=== PATIENT | male | born 1975 | race Hispanic/Latino ===

== ENCOUNTER 2021-10-07 11:33 | Inpatient (IN) | payer OTHER ==
--- OUTSIDE RECORDS SUMMARY | 2021-10-07 11:39 | XMS REPORT | Continuity of Care Document ---
:1975 Author Organization [facility] t Address [address] [place] [address] Care Team Providers Name Role Phone TOMAS HUSSEIN Attending Clinician Unavailable Shepard_P Attending Clinician Unavailable GC_NFAS_Lin_H Attending Clinician Unavailable DRU_Lindsay Attending Clinician Unavailable Leland Teague Attending Clinician [phone] GC_EPC_Watwe_V Attending Clinician Unavailable Rickie Hobbs Attending Clinician Unavailable Mart Jacobson Attending Clinician Unavailable Reina Baker Attending Clinician [phone] Brennen Bruno Attending Clinician [phone] Miguel Angel Willard Attending Clinician Unavailable Shepard_P Admitting Clinician Unavailable GC_NFAS_Lin_H Admitting Clinician Unavailable DRU_Lindsay Admitting Clinician Unavailable GC_EPC_Watwe_V Admitting Clinician Unavailable Rickie Hobbs Admitting Clinician Unavailable Mart Jacobson Admitting Clinician Unavailable Miguel Angel Willard Admitting Clinician Unavailable Payers Payer Name Policy Type Policy Number Effective Date Expiration Date S hernandez MEDICARE A B [id number] 2021 00:00:00 [place] [id number] [place] [id number] 2021 [employer] Advertising 00:00:00 [place] [id number] [place] Problems Condition Condition Condition Status Onset Resolution Last Treating Co mments Source Name Details Category Date Date Treatment Clinician Date Hyperlipid Hyperlipid Problem Active V illage emia emia 5-11 Family 00:00: Practic 00 e Primary Primary Problem Active Samantha insomnia Insomnia 5-11 Family 00:00: Practic 00 e Essential Essential Problem Active Sharon edgar hypertensi Hypertensi 5-11 [place] on on 00:00: Practic 00 e End stage End Stage Problem Active Sharon edgar renal Renal 5-11 Family failure on Failure on 00:00: Pr actic dialysis Dialysis 00 e Multiple Multiple Problem Active Dangelo ge complicati Complicati 5-11 Fa [place] ons due to ons Due to 00:00: Pr actic type 2 Type 2 00 e diabetes Diabetes mellitus Mellitus History of History of Problem Active V illage amputation Amputation 5-11 Fa [place] of left of Left 00:00: Practic leg Leg 00 e through through tibia and Tibia and fibula Fibula Allergies, Adverse Reactions, Alerts Allergy Allergy Status Severity Reaction(s) Onset Inactive Treating Comm ents Source Name Type Date Date Clinician No Known DA Active U [facility]10 [facility] 00:00: Health 00 are Dami Wisdom No Known DA Active U [facility]10 [facility] 00 are Dami Wisdom Social History Smoking Status Start Date Stop Date Source Former [facility] Medications Ordered Filled Start Stop Current Ordering Indication Dosage Frequency Signature Comments Components Source Medication Medication Date Date Medication? Clinician (SIG) Name Name amlodipine amlodipine No 1 Q1D amlodipine [facility] 5 mg tablet 5 mg tablet 5 mg F amily Take 1 Take 1 tablet Practic tablet tablet Take 1 e every day every day tablet by oral by oral every day route. route. by oral route. atorvastati atorvastati No 1 Q1D atorvastat [facility] n 10 mg n 10 mg in 10 mg Famil y tablet Take tablet Take tablet Practic 1 tablet 1 tablet Take 1 e every day every day tablet by oral by oral every day route. route. by oral route. Restoril Restoril No 1capsul Restoril [facility] 7.5 mg 7.5 mg e(s) 7.5 mg Family capsule capsule capsule Practi c Take 1 Take 1 Take 1 e capsule as capsule as capsule as needed by needed by needed by oral route oral route oral route at dinner at dinner at dinner for 30 for 30 for 30 days. days. days. sevelamer sevelamer No 1 TID [facility] Samantha carbonate carbonate carbonate [facility] 800 mg 800 mg 800 mg Practic tablet Take tablet Take tablet e 1 tablet 3 1 tablet 3 Take 1 times a day times a day tablet 3 by oral by oral times a route. route. day by oral route. Xarelto 2.5 Xarelto 2.5 No 1 BID Xarelto [place] mg tablet mg tablet 2.5 mg Fam sonia Take 1 Take 1 tablet Practic tablet tablet Take 1 e twice a day twice a day tablet by oral by oral twice a route. route. day by oral route. Vital Signs Vital Name Observation Time Observation Value Comments Source BP Diastolic 2021-06-30 00:00:00 72 mm[Hg] [facility] Height 2021-06-30 00:00:00 65 [in_i] [facility] BMI (Body Mass 2021-06-30 00:00:00 21.8 kg/m2 [facility] Index) Practice BP Systolic 2021-06-30 00:00:00 138 mm[Hg] [facility] Body Weight 2021-06-30 00:00:00 131 [lb_av] [facility] Procedures Procedure Date / Time Performed Performing Clinician Karen alexandre [id number] 2021-04-10 00:[facility] [id number] 2021-04-10 00:00:00 [facility] [id number] 2021-04-10 00:00:00 [facility] [id number] 2021-04-10 00:00:00 [facility] [id number] 2021-04-10 00:00:00 [facility] [id number] 2021-04-08 [facility] [id number] 2021-04-08 [facility] [id number] 2021-04-08 00:00:00 SHEAZ [facility] [id number] 2021-04-08 00:00:[address] [facility] [id number] 2021-04-07 00:00:[address] [facility] [id number] 2021-04-07 00:00:[address] [facility] [id number] 2021-04-07 00:00:[address] [facility] [id number] 2021-04-07 00:00:[address] [facility] [id number] 2021-04-06 00:00:[address] [facility] [id number] 2020-11-18 00:00:[address] [facility] [id number] 2020-11-17 00:00:[address] [facility] [id number] 2020-11-17 00:00:[address] [facility] [id number] 2020-11-17 00:00:[address] [facility] [id number] 2020-11-17 00:00:[address] [facility] [id number] 2020-11-14 00:00:[address] [facility] [id number] 2020-11-13 00:00:[address] [facility] [id number] 2020-11-12 00:00:[address] [facility] [id number] 2020-11-11 00:00:[address] [facility] [id number] 2020-11-10 00:00:[address] [facility] [id number] 2020-11-10 00:00:00 VIABR [facility] [id number] 2020-11-10 00:00:00 NGUBI.03 [facility] En[facility] Start End Encounter Admission Attending Care Care Encounter Source Date/Time Date/Time Type Type Clinicians Facility Department ID 2020-11-10 Inpatient [facility] GENA [id number] [facility] 11:20:00 [id number] [facility] [place] 2021-11-10 2021-11-10 Outpatient EL TIMMINS, [facility] [id number] [facility] 00:00:00 00:00:00 TOMAS 2021-11-10 2021-11-10 Outpatient EL TIMMINS, [facility]H [facility] [id number] [facility] 00:00:00 00:00:00 TOMAS 2021-11-10 2021-11-10 Outpatient EL TIMMINS, [facility]H [facility] [id number] [facility] 00:00:00 00:00:00 TOMAS 2021-11-10 2021-11-10 Outpatient EL TIMMINS, SLEH [facility] [id number] [facility] 00:00:00 00:00:00 TOMAS 2021-11-10 2021-11-10 Outpatient EL TIMMINS, SLEH [facility] [id number] [facility] 00:00:00 00:00:00 TOMAS 2021-10-11 2021-10-11 Outpatient EL SLE[facility] [id number] [facility] 00:00:00 00:00:00 2021-10-11 2021-10-11 Outpatient EL SLEH [facility] [id number] [facility] 00:00:00 00:00:00 2021-10-11 2021-10-11 Outpatient EL [facility]H [facility] [id number] [facility] 00:00:00 00:00:00 2021-10-11 2021-10-11 Outpatient EL [facility] [id number] [facility] 00:00:00 00:00:00 2021-10-11 2021-10-11 Outpatient EL [facility] [id number] [facility] 00:00:00 00:00:00 2021-10-06 2021-10-06 Outpatient Shepard_P VFP VFP [id number] [id number] [facility] 00:00:00 00:00:00 [id number] Family Practic e 2021-09-27 2021-09-27 Outpatient Shepard_P VFP VFP [id number] 71-20 [facility] 00:00:00 00:00:00 [id number] Family Practic e 2021-09-21 2021-09-21 Outpatient Shepard_P VFP [facility] [id number] 71-20 [facility] 00:00:00 00:00:00 [id number] Family Practic e 2021-09-14 2021-09-14 Outpatient EL SLEH SLE[facility] [id number] [facility] 00:00:00 00:00:00 2021-09-14 2021-09-14 Outpatient EL SLEH SLE[facility] [id number] [facility] 00:00:00 00:00:00 2021-09-14 2021-09-14 Outpatient EL SLEH SLE[facility] [id number] [facility] 00:00:00 00:00:00 2021-09-14 2021-09-14 Outpatient EL SLEH [facility] [id number] [facility] 00:00:00 00:00:00 2021-09-13 2021-09-13 Outpatient GC_NFAS_Lin PRIV PRIV [id number] [facility] 12:46:00 12:46:00 _H [id number] Medica l 2021-09-10 2021-09-10 Outpatient AO_Vial_Bri AOSM AOSM [id number] [facility] 05:00:00 05:00:00 Ayo [id number] Orthop e [facility] Sports Medicin e 2021-09-02 2021-09-02 Outpatient EL TIMMINS, SLE SLE [id number] [facility] 00:00:00 00:00:00 TOMAS 2021-09-02 2021-09-02 Outpatient EL TIMMINS, SLE SLE [id number] [facility] 00:00:00 00:00:00 TOMAS 2021-09-02 2021-09-02 Outpatient EL TIMMINS, SLE SLE [id number] [facility] 00:00:00 00:00:00 TOMAS 2021-09-02 2021-09-02 Outpatient EL TIMMINS, SLEH SLE [id number] [facility] 00:00:00 00:00:00 TOMAS 2021-09-02 2021-09-02 Outpatient EL TIMMINS, SLEH SLEH [id number] [facility] 00:00:00 00:00:00 TOMAS 2021-09-02 2021-09-02 Outpatient EL SLEH SLE [id number] [facility] 00:00:00 00:00:00 2021-08-31 2021-08-31 Outpatient GC_NFAS_Lin PRIV PRIV [id number] [facility] 12:56:00 12:56:00 _H [id number] Medica l 2021-08-17 2021-08-17 Outpatient EL SLEH SLEH [id number] [facility] 00:00:00 00:00:00 2021-08-17 2021-08-17 Outpatient EL SLEH SLEH [id number] [facility] 00:00:00 00:00:00 2021-08-17 2021-08-17 Outpatient EL SLEH SLEH [id number] [facility] 00:00:00 00:00:00 2021-08-17 2021-08-17 Outpatient EL SLEH SLEH [id number] [facility] 00:00:00 00:00:00 2021-08-15 2021-08-15 Outpatient Shepard_P VFP VFP [id number] 12:44:00 12:44:00 [id number] Family Practic e 2021-08-06 2021-08-06 Outpatient AO_Vial_Bri AOSM AOSM [id number] [facility] 05:57:00 05:57:00 Ayo [id number] Orthop e dic Sports Medicin e 2021-07-06 2021-07-06 Outpatient GC_NFAS_Lin PRIV PRIV [id number] [facility] 04:48:00 04:48:00 _H [id number] Medica l 2021-07-05 2021-07-05 Outpatient GC_NFAS_Lin PRIV PRIV [id number] [facility] 11:38:00 11:38:00 _H [id number] Medica l 2021-07-02 2021-07-02 Outpatient GC_NFAS_Lin PRIV PRIV [id number] [facility] 06:17:00 06:17:00 _H [id number] Medica l 2021-06-30 2021-06-30 Outpatient Shepard_P VFP VFP [id number] 12:32:00 12:32:00 [id number] Family Practic e 2021-06-30 2021-06-30 Alfred Clark VFP [place] - [id number] [address] [place] [address] 00:00:00 00:00:00 Samantha Farias MD: [id number] Medical - Prac tic Emmanuel ROLLINS_CODY_[address], JOSE Wisdom [phone] , Ph. 2021-06-02 2021-06-02 Outpatient GC_NFAS_Lin PRIV PRIV [id number] [facility] 12:37:00 12:37:00 _H [id number] Medica l 2021-06-02 2021-06-02 Outpatient Leland Teague PRIV PRIV [id number] 00:00:00 00:00:00 [id number] 2021-05-26 2021-05-26 Outpatient GC_NFAS_Lin PRIV PRIV [id number] [facility] 12:45:00 12:45:00 _H [id number] Medica l 2021-05-26 2021-05-26 Outpatient Leland Teague PRIV PRIV [id number] 00:00:00 00:00:00 [id number] 2021-05-19 2021-05-19 Outpatient GC_NFAS_Lin PRIV PRIV [id number] [facility] 12:49:00 12:49:00 _H [id number] Medica l 2021-05-19 2021-05-19 Outpatient Leland Teague PRIV PRIV [id number] 00:00:00 00:00:00 [id number] 2021-05-17 2021-05-17 Outpatient Shepard_P VFP VFP [id number] [facility] 06:33:00 06:33:00 [id number] Family Practic e 2021-05-17 2021-05-17 Outpatient Shepard_P VFP VFP [id number] [facility] 06:33:00 06:33:00 [id number] Family Practic e 2021-05-17 2021-05-17 Outpatient Shepard_P VFP VFP 71-20 [facility] 06:33:00 06:33:00 [id number] Family Practic e 2021-05-17 2021-05-17 Outpatient Shepard_P VFP VFP [id number] 71-20 [place] 06:33:00 06:33:00 [id number] Family Practic e 2021-05-12 2021-05-12 Outpatient GC_NFAS_Lin PRIV PRIV [id number] [facility] 05:15:00 05:15:00 _H [id number] Medica l 2021-05-12 2021-05-12 Outpatient Leland Teague PRIV PRIV [id number] 00:00:00 00:00:00 [id number] 2021-05-05 2021-05-05 Outpatient GC_NFAS_Lin PRIV PRIV [id number] [facility] 12:43:00 12:43:00 _H [id number] Medica l 2021-05-05 2021-05-05 Outpatient Leland Teague PRIV PRIV [id number] 00:00:00 00:00:00 [id number] 2021-04-26 Outpatient GC_NFAS_Lin PRIV PRIV [id number] [facility] 11:29:00 11:29:00 _H [id number] Medica l 2021-04-26 2021-04-26 Outpatient Leland Teague PRIV PRIV [id number] 00:00:00 00:00:00 [id number] 2021-04-12 2021-04-12 Outpatient GC_NFAS_Lin PRIV PRIV [id number] [facility] 11:56:00 11:56:00 _H [id number] Medica l 2021-04-12 2021-04-12 Outpatient GC_EPC_Watw PRIV PRIV [id number] [facility] 11:56:00 11:56:00 e_V [id number] Medica l 2021-04-07 2021-04-11 Inpatient EM Anjel, [facility] TELE [id number] [facility] 10:36:00 13:15:[address] [place] [address] 2021-04-07 2021-04-11 Inpatient EM Anjel, [facility] TELE [id number] [facility] 10:36:00 13:15:00 Rickie [facility] 2021-04-06 2021-04-06 Inpatient CLARK Jacobson, [facility] TELE [id number] [facility] 14:59:00 14:58:00 Zunaira [facility] 2021-04-01 2021-04-01 Outpatient GC_EPC_Watw PRIV PRIV [id number] [facility] 10:06:00 10:06:00 e_V [id number] Medica l 2021-03-31 2021-03-31 Outpatient GC_EPC_Watw PRIV PRIV [id number] [facility] 12:14:00 12:14:00 e_V [id number] Medica l 2021-03-31 2021-03-31 Outpatient Samuel, PRIV PRIV [id number] 00:00:00 00:00:00 Reina [id number] Anil [id number] 2021-03-23 2021-03-23 Outpatient GC_EPC_Watw PRIV PRIV [id number] [facility] 09:42:00 09:42:00 e_V [id number] Medica l 2021-03-23 2021-03-23 Outpatient GC_EPC_Watw PRIV PRIV [id number] [facility] 09:42:00 09:42:00 e_V [id number] Medica l 2021-03-18 2021-03-18 Outpatient GC_EPC_Watw PRIV PRIV [id number] [facility] 09:01:00 09:01:00 e_V [id number] Medica l 2021-03-17 2021-03-17 Outpatient GC_EPC_Watw PRIV PRIV [id number] [facility] 12:38:00 12:38:00 e_V [id number] Medica l 2021-03-17 2021-03-17 Outpatient Bruno, PRIV PRIV [id number] 00:00:00 00:00:00 Brennen Cma [id number] 2021-03-09 2021-03-09 Outpatient GC_EPC_Watw PRIV PRIV [id number] [facility] 05:17:00 05:17:00 e_V [id number] Medica l 2021-03-03 2021-03-03 Outpatient GC_EPC_Watw PRIV PRIV [id number] [facility] 02:13:00 02:13:00 e_V [id number] Medica l 2021-03-03 2021-03-03 Outpatient GC_EPC_Watw PRIV PRIV [id number] [facility] 02:13:00 02:13:00 e_V [id number] Medica l 2020-11-10 2020-11-18 Inpatient EM Miguel Angel Willard [facility] TELE [id number] [facility] 13:36:00 18:34:00 63 [facility] Results Test Description Test Time Test Comments Results Result Comments Source SURGICAL 2021-04-12 11:35:00 Test Item Value Reference Range Interpretation Comme nts SURGICAL RUN DATE: (test 04/12/21 [facility] * LIVE* PAGE 1 RUN TIME: 1135 Specimen Inquiry RUN USER: INTERFACE code = PATIENT: ) VALDO NAYLOR ACCT #: [id number] LOC: NC.MS3 U #: [id number] AGE/SX: 45/M ROOM: [place] [address] RE04/07/21REG DR: Rickie Hobbs MD : 71 BED: 1 DIS: 04/11/21 STATUS: DIS IN TLOC: SPEC #: [id number] RECD: 04/09/211042 STATUS: GERALD BUCKLEY #: [id number] SEBASTIEN: 04/06/21- SUBM DR: Rickie Hobbs MD ENTERED: 04/09/21 SP TY PE: SURGICAL OTHR DR: No Primary or Family Physician Self Referred Rodolfo Pena MD, Haonan DPM Montserrat singh,Fernando Husain,Adriano Howell,Mya Smith MD DPM Carlos Kulkarni RED: [id number], [id number], ANATOMIC SPEC TISSUES: TOE, NOS - GREAT TOE RIGHT FOOT FINAL DIAGNOSIS A. Right gre at toe, amputation: Gangrene with infarction abscess. Acute osteomyelitis. Involved margins. GROSS DESC RIPTION Received in formalin, labeled with the patient's name, date of and designated "antonino stuart ht" is a first digit measuring 3.5 x 3.0 x 2.5 cm. The skin is necrotic appearingand there is a scab on the tip of the toe measuring 1.7 x 1.3 cm. The bone at the marginappears grossly involved. Sectioning the toe reveals a hemorrhagic soft underlying boneand black soft tissue and skin. Tow Truck Dispatcher section s are submitted as follows:A1: Scab at the tip of the toeA2: Full section of bone from resection margin t o tip of toeA3: Skin and soft tissue at resection margin The cassette with bone will be submitted in de gilberto. LC/smh Technical component performed [facility],[address] [facility] [place] [address] CONTINUED ON NEXT PAGE RUN DATE: 04/12/21 [facility] * LIVE* PAGE 2 RUN TIME: 1135 Specimen Inquiry RUN USER: INTERFACE SPEC #: [id number] PATIENT: VALDO NAYLOR #[id number] (Continued) GROSS DESCRIPTION (Continued ) Unless gross only, the diagnosis is based upon microscopic examination.Immunohistochemi stry: This test was developed and its performancecharacteristics determined by this laboratory. It has n ot been approved nordoes it need approval by the [place] FDA. Appropriate positive and negative contro lsare reviewed and judged to be acceptable. This laboratory is certified underthe Clinical Laboratory Improvement Amendments (CLIA-88) as qualified toperform high complexity clinical laboratory testing. MICROSCOPIC DESCRIPTION Unless gross only, the diagnosis is based on microscopic examination. CLINICAL INFORMATION Gangrene great toe right foot Signed Deshawn Arango 1135 END OF REPORT [id number] 11:50:00 Test Item Value Reference Range Interpretation Comments GLUBED (test 90 mg/dL 70-105 N Intravenous adm inistration of code = GLUBED) N-acetylcyste ine which resultsin blood concentrations >5 mg/dL will cause overestim ationof blood glucose results . Do not use during intraven ousinfusion of N'acetylcystein e. BASIC METABOLIC [id number] 09:13:00 Test Item Value Reference Range Interpretation Comments SODIUM (test code = 138 mmol/L 135-145 N NA) POTASSIUM (test code 4.4 mmol/L 3.5-5.1 N = K) CHLORIDE (test code = 104 mmol/L 98-107 N CL) CARBON DIOXIDE (test 31 mmol/L 21-32 N code = CO2) ANION GAP (test code 7.4 2.0-16.0 N = GAP) GLUCOSE (test code = 92 mg/dL 65-99 N GLU) BLOOD UREA NITROGEN 16 mg/dL 4-23 N (test code = BUN) GLOMERULAR FILTRATION 12 ml/min L The es timated RATE (test code = glomerular filtration GFR) rate is compute d usingpatient ra ce, age (>18), sex, and serum creatinine. If anyof the needed data elements are mi ssing the Laboratory cannot compute an jorge mation of the glomerul ar filtration rate . CREATININE (test code 5.3 mg/dL 0.6-1.5 H = CREAT) BUN/CREATININE RATIO 3.0 12.0-20.0 L (test code = BUN/CREA) CALCIUM (test code = 8.2 mg/dL 8.5-10.1 L CA) CBC W/AUTO [id number] 08:39:00 Test Item Value Reference Range Interpretation Comments WHITE BLOOD CELL (test code = 9.6 10 3/uL 4.5-11.0 N WBC) RED BLOOD CELL (test code = 3.67 10 6/uL 4.30-5.90 L RBC) HEMOGLOBIN (test code = HGB) 10.5 g/dL 14.0-18.0 L HEMATOCRIT (test code = HCT) 34.8 % 40.0-55.0 L MEAN CELL VOLUME (test code = 95 fL 81-102 N MCV) MEAN CELL HGB (test code = 28.6 pg 26.0-34.0 N MCH) MEAN CELL HGB CONCENTRATION 30.2 g/dL 31.0-37.0 L (test code = MCHC) RED CELL DISTRIBUTION WIDTH 15.6 % 11.6-14.4 H (test code = RDW) PLATELET COUNT (test code = 440 10 3/uL 150-400 H PLT) MEAN PLATELET VOLUME (test 8.9 fL 9.0-12.6 L code = MPV) NEUTROPHIL % (test code = NT%) 56.4 % 33.0-76.0 N IMMATURE GRANULOCYTE % (test 2.2 % 0.0-1.0 H code = IG%) LYMPHOCYTE % (test code = LY%) 24.7 % 14.0-56.4 N MONOCYTE % (test code = MO%) 8.6 % 0.0-12.9 N EOSINOPHIL % (test code = EO%) 6.0 % 0.0-7.0 N BASOPHIL % (test code = BA%) 2.1 % 0-2.0 H NUCLEATED RBC % (test code = 0.0 % 0-0.2 N NRBC%) NEUTROPHIL # (test code = NT#) 5.44 10 3/uL 1.5-7.0 N IMMATURE GRANULOCYTE # (test 0.210 x10 3/uL 0.000-0.100 H code = IG#) LYMPHOCYTE # (test code = LY#) 2.38 10 3/uL 1.50-4.00 N MONOCYTE # (test code = MO#) 0.83 10 3/uL 0.20-0.80 H EOSINOPHIL # (test code = EO#) 0.58 10 3/uL 0.0-0.5 H BASOPHIL # (test code = BA#) 0.20 10 3/uL 0.0-0.1 H [id number] 07:33:00 Test Item Value Reference Range Interpretation Comments GLUBED (test 84 mg/dL 70-105 N Intravenous adm inistration of code = GLUBED) N-acetylcyste ine which resultsin blood concentrations >5 mg/dL will cause overestim ationof blood glucose results . Do not use during intraven ousinfusion of N'acetylcystein e. [id number] 21:13:00 Test Item Value Reference Range Interpretation Comments GLUBED (test 182 mg/dL 70-105 H Intravenous adm inistration code = GLUBED) of N-acetylcy steine which resultsin blood concentrations >5 mg/dL will cause overestim ationof blood glucose results . Do not use during intraven ousinfusion of N'acetylcyst eine. [id number] 16:14:00 Test Item Value Reference Range Interpretation Comments GLUBED (test 108 mg/dL 70-105 H Intravenous adm inistration code = GLUBED) of N-acetylcy steine which resultsin blood concentrations >5 mg/dL will cause overestim ationof blood glucose results . Do not use during intraven ousinfusion of N'acetylcyst eine. [id number] 09:43:00 Test Item Value Reference Range Interpretation Comments GLUBED (test 77 mg/dL 70-105 N Intravenous adm inistration of code = GLUBED) N-acetylcyste ine which resultsin blood concentrations >5 mg/dL will cause overestim ationof blood glucose results . Do not use during intraven ousinfusion of N'acetylcystein e. BASIC METABOLIC [id number] 07:49:00 Test Item Value Reference Range Interpretation Comments SODIUM (test code = 137 mmol/L 135-145 N NA) POTASSIUM (test code 4.3 mmol/L 3.5-5.1 N = K) CHLORIDE (test code = 104 mmol/L 98-107 N CL) CARBON DIOXIDE (test 28 mmol/L 21-32 N code = CO2) ANION GAP (test code 9.3 2.0-16.0 N = GAP) GLUCOSE (test code = 95 mg/dL 65-99 N GLU) BLOOD UREA NITROGEN 21 mg/dL 4-23 N (test code = BUN) GLOMERULAR FILTRATION 9 ml/min L The es timated RATE (test code = glomerular filtration GFR) rate is compute d usingpatient ra ce, age (>18), sex, and serum creatinine. If anyof the needed data elements are mi ssing the Laboratory cannot compute an jorge mation of the glomerul ar filtration rate . CREATININE (test code 7.0 mg/dL 0.6-1.5 H = CREAT) BUN/CREATININE RATIO 3.0 12.0-20.0 L (test code = BUN/CREA) CALCIUM (test code = 8.0 mg/dL 8.5-10.1 L CA) [id number] 07:49:00 Test Item Value Reference Range Interpretation Comments PHOSPHOROUS (test code = PHOS) 4.2 mg/dL 2.5-4.9 N [id number] 07:49:00 Test Item Value Reference Range Interpretation Comments MAGNESIUM (test code = MAG) 2.0 mg/dL 1.8-2.4 N [id number] 07:49:00 Test Item Value Reference Range Interpretation Comments VANCOMYCIN (test code = VANCO) 31.1 ug/mL 5.0-40.0 N CBC W/AUTO [id number] 07:30:00 Test Item Value Reference Range Interpretation Comments WHITE BLOOD CELL (test code = 9.3 10 3/uL 4.5-11.0 N WBC) RED BLOOD CELL (test code = 3.36 10 6/uL 4.30-5.90 L RBC) HEMOGLOBIN (test code = HGB) 9.6 g/dL 14.0-18.0 L HEMATOCRIT (test code = HCT) 31.5 % 40.0-55.0 L MEAN CELL VOLUME (test code = 94 fL 81-102 MCV) MEAN CELL HGB (test code = 28.6 pg 26.0-34.0 N MCH) MEAN CELL HGB CONCENTRATION 30.5 g/dL 31.0-37.0 L (test code = MCHC) RED CELL DISTRIBUTION WIDTH 15.6 % 11.6-14.4 H (test code = RDW) PLATELET COUNT (test code = 368 10 3/uL 150-400 N PLT) MEAN PLATELET VOLUME (test 8.9 fL 9.0-12.6 L code = MPV) NEUTROPHIL % (test code = NT%) 61.5 % 33.0-76.0 N IMMATURE GRANULOCYTE % (test 1.2 % 0.0-1.0 H code = IG%) LYMPHOCYTE % (test code = LY%) 21.2 % 14.0-56.4 N MONOCYTE % (test code = MO%) 9.2 % 0.0-12.9 N EOSINOPHIL % (test code = EO%) 5.5 % 0.0-7.0 N BASOPHIL % (test code = BA%) 1.4 % 0-2.0 N NUCLEATED RBC % (test code = 0.0 % 0-0.2 N NRBC%) NEUTROPHIL # (test code = NT#) 5.70 10 3/uL 1.5-7.0 N IMMATURE GRANULOCYTE # (test 0.110 x10 3/uL 0.000-0.100 H code = IG#) LYMPHOCYTE # (test code = LY#) 1.96 10 3/uL 1.50-4.00 N MONOCYTE # (test code = MO#) 0.85 10 3/uL 0.20-0.80 H EOSINOPHIL # (test code = EO#) 0.51 10 3/uL 0.0-0.5 H BASOPHIL # (test code = BA#) 0.13 10 3/uL 0.0-0.1 H [id number] 20:42:00 Test Item Value Reference Range Interpretation Comments GLUBED (test 158 mg/dL 70-105 H Intravenous adm inistration code = GLUBED) of N-acetylcy steine which resultsin blood concentrations >5 mg/dL will cause overestim ationof blood glucose results . Do not use during intraven ousinfusion of N'acetylcyst eine. [id number] 16:56:00 Test Item Value Reference Range Interpretation Comments GLUBED (test 109 mg/dL 70-105 H Intravenous adm inistration code = GLUBED) of N-acetylcy steine which resultsin blood concentrations >5 mg/dL will cause overestim ationof blood glucose results . Do not use during intraven ousinfusion of N'acetylcyst eine. [id number] 13:32:00 Test Item Value Reference Range Interpretation Comments GLUBED (test 124 mg/dL 70-105 H Intravenous adm inistration code = GLUBED) of N-acetylcy steine which resultsin blood concentrations >5 mg/dL will cause overestim ationof blood glucose results . Do not use during intraven ousinfusion of N'acetylcyst eine. [id number] 08:24:00 Test Item Value Reference Range Interpretation Comments GLUBED (test 85 mg/dL 70-105 N Intravenous adm inistration of code = GLUBED) N-acetylcyste ine which resultsin blood concentrations >5 mg/dL will cause overestim ationof blood glucose results . Do not use during intraven ousinfusion of N'acetylcystein e. BASIC METABOLIC [id number] 07:42:00 Test Item Value Reference Range Interpretation Comments SODIUM (test code = 137 mmol/L 135-145 N NA) POTASSIUM (test code 4.2 mmol/L 3.5-5.1 N = K) CHLORIDE (test code = 102 mmol/L 98-107 N CL) CARBON DIOXIDE (test 29 mmol/L 21-32 N code = CO2) ANION GAP (test code 10.2 2.0-16.0 N = GAP) GLUCOSE (test code = 89 mg/dL 65-99 N GLU) BLOOD UREA NITROGEN 14 mg/dL 4-23 N (test code = BUN) GLOMERULAR FILTRATION 12 ml/min L The es timated RATE (test code = glomerular filtration GFR) rate is compute d usingpatient ra ce, age (>18), sex, and serum creatinine. If anyof the needed data elements are mi ssing the Laboratory cannot compute an jorge mation of the glomerul ar filtration rate . CREATININE (test code 5.3 mg/dL 0.6-1.5 H = CREAT) BUN/CREATININE RATIO 2.6 12.0-20.0 L (test code = BUN/CREA) CALCIUM (test code = 8.4 mg/dL 8.5-10.1 L CA) COMPREHENSIVE METABOLIC [id number] 07:42:00 Test Item Value Reference Range Interpretation Comments TOTAL PROTEIN 7.3 g/dL 6.4-8.2 N (test code = PROT) ALBUMIN (test code 2.3 g/dL 3.4-5.0 L = ALB) BILIRUBIN TOTAL 0.6 mg/dL 0.2-1.2 N Use of this assay is not (test code = BILT) recommend ed for patients undergoingtreat ment with Eltrombopag due to the potential for falselyelevated results. SGOT/AST (test 7 U/L 15-37 L code = AST) SGPT/ALT (test 7 U/L 6-50 N code = ALT) ALKALINE 70 U/L 45-117 N PHOSPHATASE (test code = ALKP) CBC W/AUTO [id number] 07:03:00 Test Item Value Reference Range Interpretation Comments WHITE BLOOD CELL (test code = 8.8 10 3/uL 4.5-11.0 N WBC) RED BLOOD CELL (test code = 3.47 10 6/uL 4.30-5.90 L RBC) HEMOGLOBIN (test code = HGB) 9.5 g/dL 14.0-18.0 L HEMATOCRIT (test code = HCT) 31.7 % 40.0-55.0 L MEAN CELL VOLUME (test code = 91 fL 81-102 N MCV) MEAN CELL HGB (test code = 27.4 pg 26.0-34.0 N MCH) MEAN CELL HGB CONCENTRATION 30.0 g/dL 31.0-37.0 L (test code = MCHC) RED CELL DISTRIBUTION WIDTH 15.5 % 11.6-14.4 H (test code = RDW) PLATELET COUNT (test code = 369 10 3/uL 150-400 N PLT) MEAN PLATELET VOLUME (test 8.9 fL 9.0-12.6 L code = MPV) NEUTROPHIL % (test code = NT%) 65.9 % 33.0-76.0 N IMMATURE GRANULOCYTE % (test 1.2 % 0.0-1.0 H code = IG%) LYMPHOCYTE % (test code = LY%) 19.3 % 14.0-56.4 N MONOCYTE % (test code = MO%) 9.3 % 0.0-12.9 N EOSINOPHIL % (test code = EO%) 3.2 % 0.0-7.0 N BASOPHIL % (test code = BA%) 1.1 % 0-2.0 N NUCLEATED RBC % (test code = 0.0 % 0-0.2 N NRBC%) NEUTROPHIL # (test code = NT#) 5.82 10 3/uL 1.5-7.0 N IMMATURE GRANULOCYTE # (test 0.110 x10 3/uL 0.000-0.100 H code = IG#) LYMPHOCYTE # (test code = LY#) 1.71 10 3/uL 1.50-4.00 N MONOCYTE # (test code = MO#) 0.82 10 3/uL 0.20-0.80 H EOSINOPHIL # (test code = EO#) 0.28 10 3/uL 0.0-0.5 N BASOPHIL # (test code = BA#) 0.10 10 3/uL 0.0-0.1 N [id number] 21:34:00 Test Item Value Reference Range Interpretation Comments GLUBED (test 151 mg/dL 70-105 H Intravenous adm inistration code = GLUBED) of N-acetylcy steine which resultsin blood concentrations >5 mg/dL will cause overestim ationof blood glucose results . Do not use during intraven ousinfusion of N'acetylcyst eine. AB HEPATITIS A [id number] 18:23:00 Test Item Value Reference Range Interpretation Comments AB HEPATITIS A IGM (test code = Non-Reactive NONREACTIVE HAVMAB) AG HEPATITIS B [id number] 18:23:00 Test Item Value Reference Range Interpretation Comments AG HEPATITIS B SURFACE (test Non-Reactive NONREACTIVE code = HBSAG) AB HEPATITIS B CORE [id number] 18:23:00 Test Item Value Reference Range Interpretation Comments AB HEPATITIS B CORE IGM (test Non-Reactive NONREACTIVE code = HBCMAB) AB HEPATITIS [id number] 18:23:00 Test Item Value Reference Range Interpretation Comments AB HEPATITIS C (test code = Non-Reactive NONREACTIVE HCVAB) [id number] 18:18:00 Test Item Value Reference Range Interpretation Comments GLUBED (test 75 mg/dL 70-105 N Intravenous adm inistration of code = GLUBED) N-acetylcyste ine which resultsin blood concentrations >5 mg/dL will cause overestim ationof blood glucose results . Do not use during intraven ousinfusion of N'acetylcystein e. HGBA1C - GLYCOSYLATED [id number] 05:35:00 Test Item Value Reference Range Interpretation Comments GLYCOSYLATED 7.0 % 4.5-5.9 H [employer] HEMOGLOBIN (HA1C) Associatio n recommends a (test code = GLYHGB) therape uticrange of <7.0% Hemoglobin A1c for patients with diabetesmellitu s (Type 2 diabetes). BASIC METABOLIC [id number] 04:46:00 Test Item Value Reference Range Interpretation Comments SODIUM (test code = 134 mmol/L 135-145 L NA) POTASSIUM (test code 4.7 mmol/L 3.5-5.1 N = K) CHLORIDE (test code = 102 mmol/L 98-107 N CL) CARBON DIOXIDE (test 26 mmol/L 21-32 N code = CO2) ANION GAP (test code 10.7 2.0-16.0 N = GAP) GLUCOSE (test code = 105 mg/dL 65-99 H GLU) BLOOD UREA NITROGEN 23 mg/dL 4-23 N (test code = BUN) GLOMERULAR FILTRATION 8 ml/min L The es timated RATE (test code = glomerular filtration GFR) rate is compute d usingpatient ra ce, age (>18), sex, and serum creatinine. If anyof the needed data elements are mi ssing the Laboratory cannot compute an jorge mation of the glomerul ar filtration rate . CREATININE (test code 7.5 mg/dL 0.6-1.5 H = CREAT) BUN/CREATININE RATIO 3.1 12.0-20.0 L (test code = BUN/CREA) CALCIUM (test code = 8.4 mg/dL 8.5-10.1 L CA) COMPREHENSIVE METABOLIC [id number] 04:46:00 Test Item Value Reference Range Interpretation Comments TOTAL PROTEIN 7.0 g/dL 6.4-8.2 N (test code = PROT) ALBUMIN (test code 2.2 g/dL 3.4-5.0 L = ALB) BILIRUBIN TOTAL 0.5 mg/dL 0.2-1.2 N Use of this assay is not (test code = BILT) recommend ed for patients undergoingtreat ment with Eltrombopag due to the potential for falselyelevated results. SGOT/AST (test 6 U/L 15-37 L code = AST) SGPT/ALT (test 6 U/L 6-50 N code = ALT) ALKALINE 73 U/L 45-117 N PHOSPHATASE (test code = ALKP) [id number] 04:46:00 Test Item Value Reference Range Interpretation Comments PHOSPHOROUS (test code = PHOS) 2.1 mg/dL 2.5-4.9 L [id number] 04:46:00 Test Item Value Reference Range Interpretation Comments MAGNESIUM (test code = MAG) 2.1 mg/dL 1.8-2.4 N FE W/TOTAL IRON BINDING [id number] 04:46:00 Test Item Value Reference Range Interpretation Comments IRON (test code = IRON) 35 ug/dL 35-150 N TOTAL IRON BINDING CAPACITY (test 136 ug/dL 260-445 L code = TIBC) IRON SATURATION (test code = FESAT) 26 % 11-46 N [id number] 04:46:00 Test Item Value Reference Range Interpretation Comments VANCOMYCIN (test code = VANCO) 21.3 ug/mL 5.0-40.0 N CBC W/AUTO [id number] 04:23:00 Test Item Value Reference Range Interpretation Comments WHITE BLOOD CELL (test code = 11.5 10 3/uL 4.5-11.0 H WBC) RED BLOOD CELL (test code = 3.51 10 6/uL 4.30-5.90 L RBC) HEMOGLOBIN (test code = HGB) 10.1 g/dL 14.0-18.0 L HEMATOCRIT (test code = HCT) 32.3 % 40.0-55.0 L MEAN CELL VOLUME (test code = 92 fL 81-102 N MCV) MEAN CELL HGB (test code = 28.8 pg 26.0-34.0 N MCH) MEAN CELL HGB CONCENTRATION 31.3 g/dL 31.0-37.0 N (test code = MCHC) RED CELL DISTRIBUTION WIDTH 15.3 % 11.6-14.4 H (test code = RDW) PLATELET COUNT (test code = 334 10 3/uL 150-400 N PLT) MEAN PLATELET VOLUME (test 8.6 fL 9.0-12.6 L code = MPV) NEUTROPHIL % (test code = NT%) 67.8 % 33.0-76.0 N IMMATURE GRANULOCYTE % (test 1.0 % 0.0-1.0 N code = IG%) LYMPHOCYTE % (test code = LY%) 17.4 % 14.0-56.4 N MONOCYTE % (test code = MO%) 9.6 % 0.0-12.9 N EOSINOPHIL % (test code = EO%) 3.2 % 0.0-7.0 N BASOPHIL % (test code = BA%) 1.0 % 0-2.0 N NUCLEATED RBC % (test code = 0.0 % 0-0.2 N NRBC%) NEUTROPHIL # (test code = NT#) 7.82 10 3/uL 1.5-7.0 H IMMATURE GRANULOCYTE # (test 0.110 x10 3/uL 0.000-0.100 H code = IG#) LYMPHOCYTE # (test code = LY#) 2.00 10 3/uL 1.50-4.00 N MONOCYTE # (test code = MO#) 1.11 10 3/uL 0.20-0.80 H EOSINOPHIL # (test code = EO#) 0.37 10 3/uL 0.0-0.5 N BASOPHIL # (test code = BA#) 0.11 10 3/uL 0.0-0.1 H [id number] 20:15:00 Test Item Value Reference Range Interpretation Comments GLUBED (test 82 mg/dL 70-105 N Intravenous adm inistration of code = GLUBED) N-acetylcyste ine which resultsin blood concentrations >5 mg/dL will cause overestim ationof blood glucose results . Do not use during intraven ousinfusion of N'acetylcystein e. [id number] 18:40:00 Test Item Value Reference Range Interpretation Comments GLUBED (test 83 mg/dL 70-105 N Intravenous adm inistration of code = GLUBED) N-acetylcyste ine which resultsin blood concentrations >5 mg/dL will cause overestim ationof blood glucose results . Do not use during intraven ousinfusion of N'acetylcystein e. [id number] 16:07:00 Test Item Value Reference Range Interpretation Comments GLUBED (test 80 mg/dL 70-105 N Intravenous adm inistration of code = GLUBED) N-acetylcyste ine which resultsin blood concentrations >5 mg/dL will cause overestim ationof blood glucose results . Do not use during intraven ousinfusion of N'acetylcystein e. - MRI LOW EXT W/O CONT [id number] 13:47:00 [facility] 1975 Sex: MPatient Name: VALDO NAYLOR Unit No: [id number] EXAMS: CPT CODE: [id number] MRI LOW EXT W/[place] [id number] LOCATION: H 19 MRI OF THE RIGHT FOOT WITHOUT INTRAVENOUS CONTRAST HISTORY: Hallux osteomyelitis. TECHNIQUE: Multiplanar and multisequence MR imaging of the right forefoot was performed without the administration of intravenous gadolinium. COMPARISON: 04/06/2019 right foot radiograph. FINDINGS: This examination is limited due to motion artifact. There is subcutaneous edema at the first digit with an area of fluid measuring 1.8 x 1.0 x 1.1 cm that appear to contain several foci of air and is thought to extend into the intramedullary space of the first distal phalanx. There is osteolysis of the first distal phalanx with significant marrow edema and bony fragmentation that include areas ofT1 hypointense marrow signal. Marrow edema and T1 hypointense signal abnormality is also appreciatedat the distal and medial margin of the first proximal phalanx. There is chronic bony remodeling withdorsal dislocation at the fifth and fourth MTP joints. There is a chronic third metatarsal fracture.Degenerative cystic changes are identified at the third metatarsal base. There is no evidence for tenosynovitis. The Lisfranc ligament is intact. There is moderate diffuse muscular edema without significant fatty atrophy. IMPRESSION: Osteomyelitis of the first distal phalanx and distal margin of the first proximal phalanx. Abscess at the first digit tip with intraosseous extension into the first distal phalanx. Moderate diffuse myositis. Chronic bony remodeling with dorsal dislocation at the fourth and fifth MTP joints, this could be from remote infection or trauma. Chronic third metatarsal fracture. at 1347 Reported and signed by: Balta Philip M.D. Name: VALDO NAYLOR [facility] Phys: Leland Gardner DPRonald [address] : 1975 Age: 45 Sex: [place] [id number] Loc: NC.5303 1 Exam Date: 04/06/2021 Status: ADM IN PH: FAX: PAGE 1 Signed Report (CONTINUED) Patient Name: VALDO NAYLOR Unit No: [id number] EXAMS: CPT CODE: [id number] MRI LOW EXT W/[place] [id number] <Continued> CC:Self Referred; Mart Jacobson MD; Leland Teague DPM Technologist: Anjali Rodas Trscr Dt/Tm: 04/07/2021(1347) by:[email or web address] Electronic Signature Date/Time: 04/07/2021 (1347)Orig Print D/T: S: 04/07/2021 ( 2330) Name: VALDO NAYLOR [facility] Phys: Leland Gardner DPRonald [address]DOB: 1975 Age: 45 Sex: [place] [phone] Loc: NC.5303 1 Exam Date: 04/06/2021 Status: ADM IN PH: FAX: PAGE 2 Signed ReportBASIC METABOLIC [id number] 11:08:00 Test Item Value Reference Range Interpretation Comments SODIUM (test code = 137 mmol/L 135-145 N NA) POTASSIUM (test code 4.2 mmol/L 3.5-5.1 = K) CHLORIDE (test code = 106 mmol/L 98-107 N CL) CARBON DIOXIDE (test 26 mmol/L 21-32 N code = CO2) ANION GAP (test code 9.2 2.0-16.0 = GAP) GLUCOSE (test code = 95 mg/dL 65-99 N GLU) BLOOD UREA NITROGEN 16 mg/dL 4-23 (test code = BUN) GLOMERULAR FILTRATION 11 ml/min L The es timated RATE (test code = glomerular filtration GFR) rate is compute d usingpatient ra ce, age (>18), sex, and serum creatinine. If anyof the needed data elements are mi ssing the Laboratory cannot compute an jorge mation of the glomerul ar filtration rate . CREATININE (test code 6.1 mg/dL 0.6-1.5 H = CREAT) BUN/CREATININE RATIO 2.6 12.0-20.0 L (test code = BUN/CREA) CALCIUM (test code = 8.2 mg/dL 8.5-10.1 L CA) COMPREHENSIVE METABOLIC [id number] 11:08:00 Test Item Value Reference Range Interpretation Comments TOTAL PROTEIN 6.7 g/dL 6.4-8.2 N (test code = PROT) ALBUMIN (test code 2.3 g/dL 3.4-5.0 L = ALB) BILIRUBIN TOTAL 0.5 mg/dL 0.2-1.2 N Use of this assay is not (test code = BILT) recommend ed for patients undergoingtreat ment with Eltrombopag due to the potential for falselyelevated results. SGOT/AST (test 6 U/L 15-37 L code = AST) SGPT/ALT (test 8 U/L 6-50 N code = ALT) ALKALINE 80 U/L 45-117 N PHOSPHATASE (test code = ALKP) CBC W/AUTO [id number] 09:52:00 Test Item Value Reference Range Interpretation Comments WHITE BLOOD CELL (test code = 11.9 10 3/uL 4.5-11.0 H WBC) RED BLOOD CELL (test code = 3.70 10 6/uL 4.30-5.90 L RBC) HEMOGLOBIN (test code = HGB) 10.3 g/dL 14.0-18.0 L HEMATOCRIT (test code = HCT) 33.6 % 40.0-55.0 L MEAN CELL VOLUME (test code = 91 fL 81-102 N MCV) MEAN CELL HGB (test code = 27.8 pg 26.0-34.0 N MCH) MEAN CELL HGB CONCENTRATION 30.7 g/dL 31.0-37.0 L (test code = MCHC) RED CELL DISTRIBUTION WIDTH 15.2 % 11.6-14.4 H (test code = RDW) PLATELET COUNT (test code = 357 10 3/uL 150-400 N PLT) MEAN PLATELET VOLUME (test 8.9 fL 9.0-12.6 L code = MPV) NEUTROPHIL % (test code = NT%) 69.9 % 33.0-76.0 N IMMATURE GRANULOCYTE % (test 0.9 % 0.0-1.0 N code = IG%) LYMPHOCYTE % (test code = LY%) 15.6 % 14.0-56.4 N MONOCYTE % (test code = MO%) 9.3 % 0.0-12.9 N EOSINOPHIL % (test code = EO%) 3.3 % 0.0-7.0 N BASOPHIL % (test code = BA%) 1.0 % 0-2.0 N NUCLEATED RBC % (test code = 0.0 % 0-0.2 N NRBC%) NEUTROPHIL # (test code = NT#) 8.30 10 3/uL 1.5-7.0 H IMMATURE GRANULOCYTE # (test 0.110 x10 3/uL 0.000-0.100 H code = IG#) LYMPHOCYTE # (test code = LY#) 1.86 10 3/uL 1.50-4.00 N MONOCYTE # (test code = MO#) 1.11 10 3/uL 0.20-0.80 H EOSINOPHIL # (test code = EO#) 0.39 10 3/uL 0.0-0.5 N BASOPHIL # (test code = BA#) 0.12 10 3/uL 0.0-0.1 H [id number] 06:16:00 Test Item Value Reference Range Interpretation Comments GLUBED (test 108 mg/dL 70-105 H Intravenous adm inistration code = GLUBED) of N-acetylcy steine which resultsin blood concentrations >5 mg/dL will cause overestim ationof blood glucose results . Do not use during intraven ousinfusion of N'acetylcyst eine. - DUP LE ART UNI [id number] 02:46:00 [facility] : 1975 Sex: MPatient Name: VALDO NAYLOR Unit No: [id number] EXAMS: CPT CODE: [id number] [facility] [id number] LOCATION: Q15 HISTORY: 45-year-old male with radiographic findings of osteomyelitis in the right great toe. COMMENT: Sonographic imaging of the arterial anatomy in this patient's right leg was obtained. Grayscale, color- flow, and Doppler waveform imaging modalities were utilized. A prior examination of both lower extremities dated November 11, 2020 is available for comparison. The systolic flow velocities listed below are in centimeters per 2nd followed by the Doppler waveform pattern. MACHINE PRECISION ENGRAVER: 117, triphasic Proximal SFA: 48, triphasic DFA: 56, triphasic Mid SFA: 89, monophasic Distal SFA: 70, monophasic Popliteal A: 94, monophasic HUMAN CAPITAL ANALYST: 39, monophasic Peroneal A: 90, monophasic BRAN: 77, monophasic DPA: 126, monophasic IMPRESSION: Again demonstrated are dampened arterial waveform patterns extending from the mid superficial femoral artery distally to the dorsalis pedis artery, with triphasic waveform patterns demonstrated more proximally in the anatomy. The overall pattern is unchanged when compared to the prior study obtained this past October. at 0246 Reported and signed by: Balta Wilkins MD CC: Self Referred; Mart Garcia; Leland Teague DPM Technologist: Macrina Jung Probe: Trscr Dt/Tm: 04/07/2021 (245) by:[email or web address] Electronic Signature Date/Time: 04/07/2021 (245)Orig Print D/T: S: 04/07/2021 (248) Name: VALDO NAYLOR [facility] Phys: Leland Gardner DPM [address] : 1975 Age: 45 Sex: [place] [id number] Loc: NC.5303 1 Exam Date: 04/06/2021 Status: ADM IN PH: FAX: PAGE 1 Signed [id number] 20:59:00 Test Item Value Reference Range Interpretation Comments GLUBED (test 103 mg/dL 70-105 N Intravenous adm inistration code = GLUBED) of N-acetylcy steine which resultsin blood concentrations >5 mg/dL will cause overestim ationof blood glucose results . Do not use during intraven ousinfusion of N'acetylcyst eine. COVID 19 INHOUSE [id number] 19:02:00 Test Item Value Reference Range Interpretation Comments COVID 19 INHOUSE NEGATIVE Negative Negative re sults do not AG (test code = preclude 201 9-nCoV infection [id number]) andshould not b e used as the sole basis for treatment or otherpatient ma nagement decisions. Nega tive results must becombined with clinical observ ations, patient history , andepidemiologi gilberto information. LIPID PROFILE (CORONARY RISK)2021-04-06 18:26:00 Test Item Value Reference Range Interpretation Comments TRIGLYCERIDES (test code = TRIG) 242 mg/dL 0-149 H CHOLESTEROL (test code = CHOL) 158 mg/dL 0-200 N CHOLESTEROL/HDL RATIO (test code = 6 1-6 N CHOLHDL) HDL CHOLESTEROL (test code = HDL) 25 mg/dL 40-60 L LIPOPROTEIN LDL (test code = LDLC) 88 mg/dL 0-100 N BASIC METABOLIC [id number] 17:10:00 Test Item Value Reference Range Interpretation Comments SODIUM (test code = 137 mmol/L 135-145 N NA) POTASSIUM (test code 3.0 mmol/L 3.5-5.1 L = K) CHLORIDE (test code = 101 mmol/L 98-107 N CL) CARBON DIOXIDE (test 33 mmol/L 21-32 H code = CO2) ANION GAP (test code 6.0 2.0-16.0 N = GAP) GLUCOSE (test code = 166 mg/dL 65-99 H GLU) BLOOD UREA NITROGEN 8 mg/dL 4-23 N (test code = BUN) GLOMERULAR FILTRATION 15 ml/min L The es timated RATE (test code = glomerular filtration GFR) rate is compute d usingpatient ra ce, age (>18), sex, and serum creatinine. If anyof the needed data elements are mi ssing the Laboratory cannot compute an jorge mation of the glomerul ar filtration rate . CREATININE (test code 4.4 mg/dL 0.6-1.5 H = CREAT) BUN/CREATININE RATIO 1.8 12.0-20.0 L (test code = BUN/CREA) CALCIUM (test code = 9.1 mg/dL 8.5-10.1 N CA) CBC W/AUTO [id number] 16:55:00 Test Item Value Reference Range Interpretation Comments WHITE BLOOD CELL (test code = 11.2 10 3/uL 4.5-11.0 H WBC) RED BLOOD CELL (test code = 4.05 10 6/uL 4.30-5.90 L RBC) HEMOGLOBIN (test code = HGB) 11.6 g/dL 14.0-18.0 L HEMATOCRIT (test code = HCT) 36.6 % 40.0-55.0 L MEAN CELL VOLUME (test code = 90 fL 81-102 N MCV) MEAN CELL HGB (test code = 28.6 pg 26.0-34.0 N MCH) MEAN CELL HGB CONCENTRATION 31.7 g/dL 31.0-37.0 N (test code = MCHC) RED CELL DISTRIBUTION WIDTH 14.9 % 11.6-14.4 H (test code = RDW) PLATELET COUNT (test code = 440 10 3/uL 150-400 H PLT) MEAN PLATELET VOLUME (test 9.0 fL 9.0-12.6 N code = MPV) NEUTROPHIL % (test code = NT%) 72.1 % 33.0-76.0 N IMMATURE GRANULOCYTE % (test 1.5 % 0.0-1.0 H code = IG%) LYMPHOCYTE % (test code = LY%) 14.3 % 14.0-56.4 N MONOCYTE % (test code = MO%) 8.1 % 0.0-12.9 N EOSINOPHIL % (test code = EO%) 2.9 % 0.0-7.0 N BASOPHIL % (test code = BA%) 1.1 % 0-2.0 N NUCLEATED RBC % (test code = 0.0 % 0-0.2 N NRBC%) NEUTROPHIL # (test code = NT#) 8.10 10 3/uL 1.5-7.0 H IMMATURE GRANULOCYTE # (test 0.170 x10 3/uL 0.000-0.100 H code = IG#) LYMPHOCYTE # (test code = LY#) 1.60 10 3/uL 1.50-4.00 N MONOCYTE # (test code = MO#) 0.91 10 3/uL 0.20-0.80 H EOSINOPHIL # (test code = EO#) 0.32 10 3/uL 0.0-0.5 N BASOPHIL # (test code = BA#) 0.12 10 3/uL 0.0-0.1 H - XR FOOT 3 + V [id number] 16:27:00 [facility] : 1975 Sex: MPatient Name: VALDO NAYLOR Unit No: [id number] EXAMS: CPT CODE: [id number] XR FOOT 3 + V [id number] EXAM: - XR FOOT 3 + V RT INDICATION: R GREAT TOE NECROSIS LOCATION CODE: A1 COMPARISON: Rightfoot radiograph dated 11/10/2020 TECHNIQUE: 3 views of the right foot were obtained. FINDINGS: No acute fracture or malalignment is seen. Chronic deformities/erosions are noted at the heads of the 2nd,3rd, 4th, and 5th metatarsals, unchanged from prior. Soft tissue irregularity is noted at the great toe with subcutaneous emphysema present. Osseous erosions are noted at the distal phalanx tuft concerning for underlying acute osteomyelitis. Vascular calcifications are seen in the soft tissues. IMPRESSION: 1. Soft tissue irregularity and subcutaneous emphysema at the great toe with underlying acute osteomyelitis of the great toe distal phalanx. 2. Chronic erosions/deformities of the 2nd through 5th metatarsal heads, unchanged from prior. at 1627 Reported and signed by: Brissa Aguirre M.D. CC: Self Referred; Rommel GUERRA; Anthony Stinson MD Technologist: Mario Hatfield Time: DAP (Gy m2): Air Kerma (mGy): Trscr Dt/Tm: 04/06/2021 (162) by:[email or web address] Electronic Signature Date/Time: 04/06/2021 (1626)Orig Print D/T: S: 04/06/2021 (163) Name[facility] Ricki Sainz [address] : 1975 Age: 45 [place]: [place] [id number] : [place] Exam Date: 04/06/2021 Status: REG ER PH: FAX: PAGE 1 Signed [id number] 17:23:00 Test Item Value Reference Range Interpretation Comments GLUBED (test 205 mg/dL 65-99 H Intravenous adm inistration code = GLUBED) of N-acetylcy steine which resultsin blood concentrations >5 mg/dL will cause overestim ationof blood glucose results . Do not use during intraven ousinfusion of N'acetylcyst eine. [id number] 08:07:00 Test Item Value Reference Range Interpretation Comments GLUBED (test 100 mg/dL 65-99 H Intravenous adm inistration code = GLUBED) of N-acetylcy steine which resultsin blood concentrations >5 mg/dL will cause overestim ationof blood glucose results . Do not use during intraven ousinfusion of N'acetylcyst eine. BASIC METABOLIC [id number] 06:51:00 Test Item Value Reference Range Interpretation Comments SODIUM (test code = 132 mmol/L 135-145 L NA) POTASSIUM (test code 4.8 mmol/L 3.5-5.1 N = K) CHLORIDE (test code = 100 mmol/L 98-107 N CL) CARBON DIOXIDE (test 25 mmol/L 21-32 N code = CO2) ANION GAP (test code 11.8 2.0-16.0 N = GAP) GLUCOSE (test code = 100 mg/dL 65-99 H GLU) BLOOD UREA NITROGEN 68 mg/dL 4-23 H (test code = BUN) GLOMERULAR FILTRATION 9 ml/min L The es timated RATE (test code = glomerular filtration GFR) rate is compute d usingpatient ra ce, age (>18), sex, and serum creatinine. If anyof the needed data elements are mi ssing the Laboratory cannot compute an jorge mation of the glomerul ar filtration rate . CREATININE (test code 7.1 mg/dL 0.6-1.5 H = CREAT) BUN/CREATININE RATIO 9.6 12.0-20.0 L (test code = BUN/CREA) CALCIUM (test code = 7.0 mg/dL 8.5-10.1 L CA) [id number] 06:51:00 Test Item Value Reference Range Interpretation Comments PHOSPHOROUS (test code = PHOS) 7.6 mg/dL 2.5-4.9 H [id number] 06:51:00 Test Item Value Reference Range Interpretation Comments MAGNESIUM (test code = MAG) 2.1 mg/dL 1.8-2.4 N CBC W/AUTO [id number] 06:10:00 Test Item Value Reference Range Interpretation Comments WHITE BLOOD CELL (test code = 11.1 10 3/uL 4.5-11.0 H WBC) RED BLOOD CELL (test code = 2.60 10 6/uL 4.30-5.90 L RBC) HEMOGLOBIN (test code = HGB) 7.5 g/dL 14.0-18.0 L HEMATOCRIT (test code = HCT) 24.6 % 40.0-55.0 L MEAN CELL VOLUME (test code = 95 fL 81-102 N MCV) MEAN CELL HGB (test code = 28.8 pg 26.0-34.0 N MCH) MEAN CELL HGB CONCENTRATION 30.5 g/dL 31.0-37.0 L (test code = MCHC) RED CELL DISTRIBUTION WIDTH 14.8 % 11.6-14.4 H (test code = RDW) PLATELET COUNT (test code = 341 10 3/uL 150-400 N PLT) MEAN PLATELET VOLUME (test 9.7 fL 9.0-12.6 N code = MPV) NEUTROPHIL % (test code = NT%) 64.4 % 33.0-76.0 N IMMATURE GRANULOCYTE % (test 1.9 % 0.0-1.0 H code = IG%) LYMPHOCYTE % (test code = LY%) 13.4 % 14.0-56.4 L MONOCYTE % (test code = MO%) 16.3 % 0.0-12.9 H EOSINOPHIL % (test code = EO%) 3.6 % 0.0-7.0 N BASOPHIL % (test code = BA%) 0.4 % 0-2.0 N NUCLEATED RBC % (test code = 0.0 % 0-0.2 N NRBC%) NEUTROPHIL # (test code = NT#) 7.14 10 3/uL 1.5-7.0 H IMMATURE GRANULOCYTE # (test 0.210 x10 3/uL 0.000-0.100 H code = IG#) LYMPHOCYTE # (test code = LY#) 1.48 10 3/uL 1.50-4.00 L MONOCYTE # (test code = MO#) 1.81 10 3/uL 0.20-0.80 H EOSINOPHIL # (test code = EO#) 0.40 10 3/uL 0.0-0.5 N BASOPHIL # (test code = BA#) 0.04 10 3/uL 0.0-0.1 N [id number] 20:09:00 Test Item Value Reference Range Interpretation Comments GLUBED (test 106 mg/dL 65-99 H Intravenous adm inistration code = GLUBED) of N-acetylcy steine which resultsin blood concentrations >5 mg/dL will cause overestim ationof blood glucose results . Do not use during intraven ousinfusion of N'acetylcyst eine. [id number] 17:54:00 Test Item Value Reference Range Interpretation Comments GLUBED (test 88 mg/dL 65-99 N Intravenous adm inistration of code = GLUBED) N-acetylcyste ine which resultsin blood concentrations >5 mg/dL will cause overestim ationof blood glucose results . Do not use during intraven ousinfusion of N'acetylcystein e. - [facility] [id number] 16:31:00 [facility] : 1975 Sex: MPatient Name: VALDO LIVINGSTON Unit No: [id number] EXAMS: CPT CODE: [id number] US GUIDANCE VASC ACCESS [id number] RIGHT JUGULAR TUNNELED DIALYSIS CATHETER PLACEMENT DICTATION LOCATION: A1 History: Renal failure. INDICATION: Dialysis catheter placement is requested for dialysis access. DIAGNOSIS: Successful placement of a right internal jugular vein tunneled dialysis catheter without complication. COMMENTS: Following the explanation of risks, benefits and alternative treatment options, informed consent was obtained. The patient was placed supine on the angiographic table and prepped and draped with all elements of maximal sterile barrier technique. Intravenous Versed and fentanyl were used for moderate sedation and 1% Xylocaine was used for local anesthesia. Blood pressure, ECG and pulse oximetry were monitored during the procedure by the labor commissioner nurse. The approximate sedation intraservice time was 30 minutes. Total fluoroscopy time was 8 seconds and 2 fluoroscopic spot images were obtained. Under ultrasound guidance, a micropuncture access was gained to a patent right internal jugular vein at the base of the neck and a picture was obtained for the record. Through this a guidewire was advanced into the central venous circulation. Following subcutaneous anesthesia from the chest across the clavicle, a subcutaneous tunnel was created over the clavicle to the puncture site at the base of the neck. The catheter was advanced through this in a retrograde fashion. Under fluoroscopic guidance, the micropuncture sheath was exchanged over the wire for the introducer sheath for the catheter. The catheter was advanced through this into the central venous circulation and the tip was positioned at the RA/SVC junction. A fluoroscopic spot image confirmed tip placement. The wire and sheath were removed. The catheter was sutured to the skin with prolene stitches. It was aspirated and flushed appropriately. Each lumen was packed with Heparin. Sterile dressings were applied and the patient left theroom in satisfactory condition without complication. at 1631 Reported and signed by: Abhijeet Lawson Jr, MD Name: VAL[facility] [place] [address] : 1975 Age: 45Sex: [place] [id number] Loc: NC.6202 1 Exam Date: 11/17/2020 Status: ADM IN PH: FAX: PAGE 1 Signed Report (CONTINUED) Patient Name: VALDO LIVINGSTON Unit No: [id number] EXAMS: CPT CODE: [id number] [facility] [id number] <Continued> CC: Self Referred; Miguel Angel Willard MD Technologist: Joanne Carr Fluoro Time: DAP (Gy m2): Air Kerma (mGy): Trscr Dt/Tm: 11/17/2020 (1630) by:Nelson Electronic Signature Date/Time: 11/17/2020 (1630)Orig Print D/T: S: 11/17/2020(1633) Name: VALDO LIVINGSTON [facility] Phys: [place] [address] : 1975 Age: 45 Sex: [place] [id number] Loc: NC.6202 1 Exam Date:11/17/2020 Status: ADM IN PH: FAX: PAGE 2 Signed Report- FLUORO GUID CTRL ACC [id number] 15:52:00 [facility] : 1975 Sex: MPatient Name: VALDO LIVINGSTON Unit No: [id number] EXAMS: CPT CODE: [id number] FLUORO GUID CTRL ACC DEV [id number] RIGHT JUGULAR TUNNELED DIALYSIS CATHETER PLACEMENT DICTATION LOCATION: A1 History: Renal failure. INDICATION: Dialysis catheter placement is requested for dialysis access. DIAGNOSIS: Successful placement of a right internal jugular vein tunneled dialysis catheter without complication. COMMENTS: Following the explanation of risks, benefits and alternative treatment options, informed consent was obtained. The patient was placed supine on the angiographic table and prepped and draped with all elements of maximal sterile barrier technique. Intravenous Versed and fentanyl were used for moderate sedation and 1% Xylocaine was used for local anesthesia. Blood pressure, ECG and pulse oximetry were monitored during the procedure by the labor commissioner nurse. The approximate sedation intraservice time was 30 minutes. Total fluoroscopy time was 8 seconds and 2 fluoroscopic spot images were obtained. Under ultrasound guidance, a micropuncture access was gained to a patent right internal jugular vein at the base of the neck and a picture was obtained for the record. Through this a guidewire was advanced into the central venous circulation. Following subcutaneous anesthesia from the chest across the clavicle, a subcutaneous tunnel was created over the clavicle to the puncture site at the base of the neck. The catheter was advanced through this in a retrograde fashion. Under fluoroscopic guidance, the micropuncture sheath was exchanged over the wire for the introducer sheath for the catheter. The catheter was advanced through this into the central venous circulation and the tip was positioned at the RA/SVC junction. A fluoroscopic spot image confirmed tip placement. The wire and sheath were removed. The catheter was sutured to the skin with prolene stitches. It was aspirated and flushed appropriately. Each lumen was packed with Heparin. Sterile dressings were applied and the patient left theroom in satisfactory condition without complication. at 1552 Reported and signed by: Abhijeet Lawson Jr, MD Name: VALDO LIVINGSTON [facility] Phys: [place] [address] [address] [facility] : 1975 Age: 45Sex: [place] [address] Loc: NC.6202 1 Exam Date: 11/17/2020 Status: ADM IN PH: FAX: PAGE 1 Signed Report (CONTINUED) Patient Name: VALDO LIVINGSTON Unit No: [id number] EXAMS: CPT CODE: [id number] FLUORO GUID CTRL ACC DEV [id number] <Continued> CC: Self Referred; Miguel Angel Willard MD Technologist: Joanne Hatfield Time: DAP (Gy m2): Air Kerma (mGy): Trscr Dt/Tm: 11/17/2020 (155) by:Nelson Electronic Signature Date/Time: 11/17/2020 (155)Orig Print D/T: S: 11/17/2020(1555) Name: VALDO LIVINGSTON [facility] Phys: [place] [address] [facility] : 1975 Age: 45 Sex: [place] [address] Loc: NC.6202 1 Exam Date:11/17/2020 Status: ADM IN PH: FAX: PAGE 2 Signed [id number] 11:09:00 Test Item Value Reference Range Interpretation Comments GLUBED (test 103 mg/dL 65-99 H Intravenous adm inistration code = GLUBED) of N-acetylcy steine which resultsin blood concentrations >5 mg/dL will cause overestim ationof blood glucose results . Do not use during intraven ousinfusion of N'acetylcyst eine. [id number] 07:12:00 Test Item Value Reference Range Interpretation Comments GLUBED (test 99 mg/dL 65-99 N Intravenous adm inistration of code = GLUBED) N-acetylcyste ine which resultsin blood concentrations >5 mg/dL will cause overestim ationof blood glucose results . Do not use during intraven ousinfusion of N'acetylcystein e. BASIC METABOLIC [id number] 05:08:00 Test Item Value Reference Range Interpretation Comments SODIUM (test code = 134 mmol/L 135-145 L NA) POTASSIUM (test code 4.4 mmol/L 3.5-5.1 N = K) CHLORIDE (test code = 103 mmol/L 98-107 N CL) CARBON DIOXIDE (test 24 mmol/L 21-32 N code = CO2) ANION GAP (test code 11.4 2.0-16.0 N = GAP) GLUCOSE (test code = 98 mg/dL 65-99 N GLU) BLOOD UREA NITROGEN 61 mg/dL 4-23 H (test code = BUN) GLOMERULAR FILTRATION 11 ml/min L The es timated RATE (test code = glomerular filtration GFR) rate is compute d usingpatient ra ce, age (>18), sex, and serum creatinine. If anyof the needed data elements are mi ssing the Laboratory cannot compute an jorge mation of the glomerul ar filtration rate . CREATININE (test code 6.1 mg/dL 0.6-1.5 H = CREAT) BUN/CREATININE RATIO 10.0 12.0-20.0 L (test code = BUN/CREA) CALCIUM (test code = 7.2 mg/dL 8.5-10.1 L CA) COMPREHENSIVE METABOLIC [id number] 05:08:00 Test Item Value Reference Range Interpretation Comments TOTAL PROTEIN 5.9 g/dL 6.4-8.2 L (test code = PROT) ALBUMIN (test code 1.6 g/dL 3.4-5.0 L = ALB) BILIRUBIN TOTAL 0.5 mg/dL 0.2-1.2 N Use of this assay is not (test code = BILT) recommend ed for patients undergoingtreat ment with Eltrombopag due to the potential for falselyelevated results. SGOT/AST (test 15 U/L 15-37 N code = AST) SGPT/ALT (test 16 U/L 6-50 N code = ALT) ALKALINE 84 U/L 45-117 N PHOSPHATASE (test code = ALKP) [id number] 05:08:00 Test Item Value Reference Range Interpretation Comments PHOSPHOROUS (test code = PHOS) 6.0 mg/dL 2.5-4.9 H [id number] 05:08:00 Test Item Value Reference Range Interpretation Comments MAGNESIUM (test code = MAG) 1.9 mg/dL 1.8-2.4 N [id number] 05:08:00 Test Item Value Reference Range Interpretation Comments VANCOMYCIN (test code = VANCO) 23.2 ug/mL 5.0-40.0 N CBC W/AUTO [id number] 05:00:00 Test Item Value Reference Range Interpretation Comments WHITE BLOOD CELL (test code = 12.5 10 3/uL 4.5-11.0 H WBC) RED BLOOD CELL (test code = 2.53 10 6/uL 4.30-5.90 L RBC) HEMOGLOBIN (test code = HGB) 7.5 g/dL 14.0-18.0 L HEMATOCRIT (test code = HCT) 24.1 % 40.0-55.0 L MEAN CELL VOLUME (test code = 95 fL 81-102 N MCV) MEAN CELL HGB (test code = 29.6 pg 26.0-34.0 N MCH) MEAN CELL HGB CONCENTRATION 31.1 g/dL 31.0-37.0 N (test code = MCHC) RED CELL DISTRIBUTION WIDTH 14.6 % 11.6-14.4 H (test code = RDW) PLATELET COUNT (test code = 300 10 3/uL 150-400 N PLT) MEAN PLATELET VOLUME (test 9.2 fL 9.0-12.6 N code = MPV) NEUTROPHIL % (test code = NT%) 68.5 % 33.0-76.0 N IMMATURE GRANULOCYTE % (test 2.7 % 0.0-1.0 H code = IG%) LYMPHOCYTE % (test code = LY%) 12.0 % 14.0-56.4 L MONOCYTE % (test code = MO%) 12.4 % 0.0-12.9 N EOSINOPHIL % (test code = EO%) 4.0 % 0.0-7.0 N BASOPHIL % (test code = BA%) 0.4 % 0-2.0 N NUCLEATED RBC % (test code = 0.0 % 0-0.2 N NRBC%) NEUTROPHIL # (test code = NT#) 8.52 10 3/uL 1.5-7.0 H IMMATURE GRANULOCYTE # (test 0.340 x10 3/uL 0.000-0.100 H code = IG#) LYMPHOCYTE # (test code = LY#) 1.50 10 3/uL 1.50-4.00 N MONOCYTE # (test code = MO#) 1.55 10 3/uL 0.20-0.80 H EOSINOPHIL # (test code = EO#) 0.50 10 3/uL 0.0-0.5 N BASOPHIL # (test code = BA#) 0.05 10 3/uL 0.0-0.1 N [id number] 19:53:00 Test Item Value Reference Range Interpretation Comments GLUBED (test 102 mg/dL 65-99 H Intravenous adm inistration code = GLUBED) of N-acetylcy steine which resultsin blood concentrations >5 mg/dL will cause overestim ationof blood glucose results . Do not use during intraven ousinfusion of N'acetylcyst eine. [id number] 17:00:00 Test Item Value Reference Range Interpretation Comments GLUBED (test 102 mg/dL 65-99 H Intravenous adm inistration code = GLUBED) of N-acetylcy steine which resultsin blood concentrations >5 mg/dL will cause overestim ationof blood glucose results . Do not use during intraven ousinfusion of N'acetylcyst eine. [id number] 15:55:00 Test Item Value Reference Range Interpretation Comments SURGICAL (test code = SR) RUN DATE: 11/16/20 [facility] *LIVE* PAGE 1 RUN TIME: 1555 Specimen Inquiry RUN USER: INTERFACE PATIENT: VALDO LIVINGSTON ACCArlette #: [id number] LOC: 6 #: [id number] AGE/SX: 45/M ROOM: [place] [address] RE11/10/20REG DR: Miguel Angel Willard MD : [birth year] BED: 1 DIS: STATUS: ADM IN TLOC: SPEC #: [id number] RECD: 11/11/20 STATUS: GERALD RE #: [id number] SEBASTIEN: 11/11/20-[address]: Roshan Manzano MD ENTERED: 11/11/20 SP TYPE: SURGICAL OTHR DR: No Primary or Family Physician Self Referred Cain Curtis MD, Binh T MD Onyenekwe, Jesse MD Pandya, Pulin K MDORDERED: 62621, [id number], ANATOMIC SPEC TISSUES: LEG, NOS - LEFT LEG BELOW THE KNEE AMPUTATION-FRESH FINAL DIAGNOSIS LEFT LEG, BELOW THE LEG AMPUTATION: SKIN AND DERMIS WITH SUBCUTANEOUS FAT AND MUSCULE ABSCESS FORMATION WITH SEPTAL INVOLVEMENT, FOCAL SKIN, FAT AND MUSCLE NECROSIS AND SCATTERED BACTERIAL COLONY FORMATION CONSISTENT WITH THE HISTORY OF NECROTIZING FASCIITIS. ACUTE INFLAMMATION WITH FOCAL ABSCESS FORMATION INVOLVES THE SUBCUTANEOUS FAT OF THE SKIN AND SOFT TISSUE MARGIN. MEDIAL WALL CALCIFICATION OF THE ANTERIOR AND POSTERIAL TIBIAL ARTERIES. MILD TO MODERATE ATHEROSCLEROSIS OF THE ANTERIOR AND POSTERIOR TIBIAL ARTERIES. - GROSS DESCRIPTION Received fresh labeled with the patient's name, medical record number and "left leg belowknee" is a left below the knee amputation specimen measuring 25.5 cm from the tip of thegreat toe to the heel and 27.5 cm from the heel to the resection margin. There is aportion of unremarkable tibia and fibula protruding from the resection margin measuring 1.0cm and 3.0 cm in length respectively. All five digits are present. The nails of thesecond, third, fourth, and fifth digits are absent. The entire dorsal aspect of the foot,all five digits, and the distal half of the plantar aspect of the foot is yellow-green toblack, necrotic and partially mummified. The remainder of the specimen is covered by dark CONTINUED ON NEXT PAGE RUN DATE: 11/16/20 [facility] [place] [facility] *LIVE* PAGE 2 RUN TIME: 1555 Specimen Inquiry RUN USER: INTERFACE SPEC #: [id number] PATIENT: VALDO LIVINGSTON #[id number] (Continued) GROSS DESCRIPTION (Continued) nguyen skin. The resection margin appears viable. Sectioning of the anterior and posteriortibial arteries reveals focal atherosclerosis. Section code:A1: Parallel soft tissue resection marginA2-A3: Tow Truck Dispatcher sections of necrotic footA4: Anterior tibial artery for decalcification A5: Posterior tibial artery for decalcification MICROSCOPIC DESCRIPTION Microscopic description is performed. CLINICAL INFORMATION NECROTIZING FASCIITIS OF LEFT LEGT Signed SIGNATURE ON FILE Jori Riggs MD 11/16/20 1555 END OF REPORT [id number] 11:10:00 Test Item Value Reference Range Interpretation Comments GLUBED (test 130 mg/dL 65-99 H Intravenous adm inistration code = GLUBED) of N-acetylcy steine which resultsin blood concentrations >5 mg/dL will cause overestim ationof blood glucose results . Do not use during intraven ousinfusion of N'acetylcyst eine. COMPREHENSIVE METABOLIC [id number] 07:22:00 Test Item Value Reference Range Interpretation Comments SODIUM (test code 135 mmol/L 135-145 N = NA) POTASSIUM (test 4.3 mmol/L 3.5-5.1 N code = K) CHLORIDE (test 102 mmol/L 98-107 N code = CL) CARBON DIOXIDE 26 mmol/L 21-32 N (test code = CO2) ANION GAP (test 11.3 2.0-16.0 N code = GAP) GLUCOSE (test code 110 mg/dL 65-99 H = GLU) BLOOD UREA 53 mg/dL 4-23 H NITROGEN (test code = BUN) GLOMERULAR 12 ml/min L The estimated g lomerular FILTRATION RATE filtration r ate is (test code = GFR) computed u singpatient race, age (>18) , sex, and serum creatinin e. If anyof the neede d data elements are mi ssing the Laboratory radha ot compute an estimation o f the glomerular filt ration rate. CREATININE (test 5.3 mg/dL 0.6-1.5 H code = CREAT) BUN/CREATININE 10.0 12.0-20.0 L RATIO (test code = BUN/CREA) TOTAL PROTEIN 5.9 g/dL 6.4-8.2 L (test code = PROT) ALBUMIN (test code 1.6 g/dL 3.4-5.0 L = ALB) CALCIUM (test code 7.0 mg/dL 8.5-10.1 L = CA) BILIRUBIN TOTAL 0.5 mg/dL 0.2-1.2 N Use of this assay is not (test code = BILT) recommend ed for patients undergoingtreat ment with Eltrombopag due to the potential for falselyelevated results. SGOT/AST (test 16 U/L 15-37 N code = AST) SGPT/ALT (test 19 U/L 6-50 N code = ALT) ALKALINE 89 U/L 45-117 N PHOSPHATASE (test code = ALKP) CBC W/AUTO [id number] 07:14:00 Test Item Value Reference Range Interpretation Comments WHITE BLOOD CELL (test code = 13.1 10 3/uL 4.5-11.0 H WBC) RED BLOOD CELL (test code = 2.68 10 6/uL 4.30-5.90 L RBC) HEMOGLOBIN (test code = HGB) 7.9 g/dL 14.0-18.0 L HEMATOCRIT (test code = HCT) 25.5 % 40.0-55.0 L MEAN CELL VOLUME (test code = 95 fL 81-102 N MCV) MEAN CELL HGB (test code = 29.5 pg 26.0-34.0 N MCH) MEAN CELL HGB CONCENTRATION 31.0 g/dL 31.0-37.0 N (test code = MCHC) RED CELL DISTRIBUTION WIDTH 14.9 % 11.6-14.4 H (test code = RDW) PLATELET COUNT (test code = 261 10 3/uL 150-400 N PLT) MEAN PLATELET VOLUME (test 9.9 fL 9.0-12.6 N code = MPV) NEUTROPHIL % (test code = NT%) 73.6 % 33.0-76.0 N IMMATURE GRANULOCYTE % (test 4.2 % 0.0-1.0 H code = IG%) LYMPHOCYTE % (test code = LY%) 7.8 % 14.0-56.4 L MONOCYTE % (test code = MO%) 10.4 % 0.0-12.9 N EOSINOPHIL % (test code = EO%) 3.7 % 0.0-7.0 N BASOPHIL % (test code = BA%) 0.3 % 0-2.0 N NUCLEATED RBC % (test code = 0.0 % 0-0.2 N NRBC%) NEUTROPHIL # (test code = NT#) 9.65 10 3/uL 1.5-7.0 H IMMATURE GRANULOCYTE # (test 0.550 x10 3/uL 0.000-0.100 H code = IG#) LYMPHOCYTE # (test code = LY#) 1.02 10 3/uL 1.50-4.00 L MONOCYTE # (test code = MO#) 1.36 10 3/uL 0.20-0.80 H EOSINOPHIL # (test code = EO#) 0.48 10 3/uL 0.0-0.5 N BASOPHIL # (test code = BA#) 0.04 10 3/uL 0.0-0.1 N [id number] 07:12:00 Test Item Value Reference Range Interpretation Comments GLUBED (test 114 mg/dL 65-99 H Intravenous adm inistration code = GLUBED) of N-acetylcy steine which resultsin blood concentrations >5 mg/dL will cause overestim ationof blood glucose results . Do not use during intraven ousinfusion of N'acetylcyst eine. [id number] 19:55:00 Test Item Value Reference Range Interpretation Comments GLUBED (test 142 mg/dL 65-99 H Intravenous adm inistration code = GLUBED) of N-acetylcy steine which resultsin blood concentrations >5 mg/dL will cause overestim ationof blood glucose results . Do not use during intraven ousinfusion of N'acetylcyst eine. [id number] 16:33:00 Test Item Value Reference Range Interpretation Comments GLUBED (test 103 mg/dL 65-99 H Intravenous adm inistration code = GLUBED) of N-acetylcy steine which resultsin blood concentrations >5 mg/dL will cause overestim ationof blood glucose results . Do not use during intraven ousinfusion of N'acetylcyst eine. [id number] 11:27:00 Test Item Value Reference Range Interpretation Comments GLUBED (test 112 mg/dL 65-99 H Intravenous adm inistration code = GLUBED) of N-acetylcy steine which resultsin blood concentrations >5 mg/dL will cause overestim ationof blood glucose results . Do not use during intraven ousinfusion of N'acetylcyst eine. BASIC METABOLIC [id number] 09:59:00 Test Item Value Reference Range Interpretation Comments SODIUM (test code = 136 mmol/L 135-145 N NA) POTASSIUM (test code 4.3 mmol/L 3.5-5.1 N = K) CHLORIDE (test code = 103 mmol/L 98-107 N CL) CARBON DIOXIDE (test 25 mmol/L 21-32 N code = CO2) ANION GAP (test code 12.3 2.0-16.0 N = GAP) GLUCOSE (test code = 109 mg/dL 65-99 H GLU) BLOOD UREA NITROGEN 40 mg/dL 4-23 H (test code = BUN) GLOMERULAR FILTRATION 17 ml/min L The es timated RATE (test code = glomerular filtration GFR) rate is compute d usingpatient ra ce, age (>18), sex, and serum creatinine. If anyof the needed data elements are mi ssing the Laboratory cannot compute an jorge mation of the glomerul ar filtration rate . CREATININE (test code 4.1 mg/dL 0.6-1.5 H = CREAT) BUN/CREATININE RATIO 9.8 12.0-20.0 L (test code = BUN/CREA) CALCIUM (test code = 7.2 mg/dL 8.5-10.1 L CA) COMPREHENSIVE METABOLIC [id number] 09:59:00 Test Item Value Reference Range Interpretation Comments TOTAL PROTEIN 6.1 g/dL 6.4-8.2 L (test code = PROT) ALBUMIN (test code 1.7 g/dL 3.4-5.0 L = ALB) BILIRUBIN TOTAL 0.6 mg/dL 0.2-1.2 N Use of this assay is not (test code = BILT) recommend ed for patients undergoingtreat ment with Eltrombopag due to the potential for falselyelevated results. SGOT/AST (test 15 U/L 15-37 N code = AST) SGPT/ALT (test 23 U/L 6-50 N code = ALT) ALKALINE 85 U/L 45-117 N PHOSPHATASE (test code = ALKP) [id number] 09:59:00 Test Item Value Reference Range Interpretation Comments PHOSPHOROUS (test code = PHOS) 5.8 mg/dL 2.5-4.9 H [id number] 09:59:00 Test Item Value Reference Range Interpretation Comments MAGNESIUM (test code = MAG) 1.8 mg/dL 1.8-2.4 N [id number] 07:42:00 Test Item Value Reference Range Interpretation Comments GLUBED (test 104 mg/dL 65-99 H Intravenous adm inistration code = GLUBED) of N-acetylcy steine which resultsin blood concentrations >5 mg/dL will cause overestim ationof blood glucose results . Do not use during intraven ousinfusion of N'acetylcyst eine. CALCIUM [id number] 07:02:00 Test Item Value Reference Range Interpretation Comments CALCIUM IONIZED (test code = RIGOBERTO) 1.0 mmol/L 1.1-1.3 L CBC W/AUTO [id number] 06:46:00 Test Item Value Reference Range Interpretation Comments WHITE BLOOD CELL (test code = 17.9 10 3/uL 4.5-11.0 H WBC) RED BLOOD CELL (test code = 2.61 10 6/uL 4.30-5.90 L RBC) HEMOGLOBIN (test code = HGB) 7.8 g/dL 14.0-18.0 L HEMATOCRIT (test code = HCT) 24.8 % 40.0-55.0 L MEAN CELL VOLUME (test code = 95 fL 81-102 N MCV) MEAN CELL HGB (test code = 29.9 pg 26.0-34.0 N MCH) MEAN CELL HGB CONCENTRATION 31.5 g/dL 31.0-37.0 N (test code = MCHC) RED CELL DISTRIBUTION WIDTH 15.1 % 11.6-14.4 H (test code = RDW) PLATELET COUNT (test code = 200 10 3/uL 150-400 N PLT) MEAN PLATELET VOLUME (test 9.5 fL 9.0-12.6 N code = MPV) NEUTROPHIL % (test code = NT%) 77.2 % 33.0-76.0 H IMMATURE GRANULOCYTE % (test 4.2 % 0.0-1.0 H code = IG%) LYMPHOCYTE % (test code = LY%) 7.3 % 14.0-56.4 L MONOCYTE % (test code = MO%) 8.7 % 0.0-12.9 N EOSINOPHIL % (test code = EO%) 2.4 % 0.0-7.0 N BASOPHIL % (test code = BA%) 0.2 % 0-2.0 N NUCLEATED RBC % (test code = 0.0 % 0-0.2 N NRBC%) NEUTROPHIL # (test code = NT#) 13.81 10 3/uL 1.5-7.0 H IMMATURE GRANULOCYTE # (test 0.760 x10 3/uL 0.000-0.100 H code = IG#) LYMPHOCYTE # (test code = LY#) 1.31 10 3/uL 1.50-4.00 L MONOCYTE # (test code = MO#) 1.56 10 3/uL 0.20-0.80 H EOSINOPHIL # (test code = EO#) 0.43 10 3/uL 0.0-0.5 N BASOPHIL # (test code = BA#) 0.04 10 3/uL 0.0-0.1 N [id number] 21:55:00 Test Item Value Reference Range Interpretation Comments VANCOMYCIN (test code = VANCO) 17.1 ug/mL 5.0-40.0 N [id number] 20:36:00 Test Item Value Reference Range Interpretation Comments GLUBED (test 113 mg/dL 65-99 H Intravenous adm inistration code = GLUBED) of N-acetylcy steine which resultsin blood concentrations >5 mg/dL will cause overestim ationof blood glucose results . Do not use during intraven ousinfusion of N'acetylcyst eine. [id number] 16:40:00 Test Item Value Reference Range Interpretation Comments GLUBED (test 112 mg/dL 65-99 H Intravenous adm inistration code = GLUBED) of N-acetylcy steine which resultsin blood concentrations >5 mg/dL will cause overestim ationof blood glucose results . Do not use during intraven ousinfusion of N'acetylcyst eine. [id number] 11:35:00 Test Item Value Reference Range Interpretation Comments GLUBED (test 136 mg/dL 65-99 H Intravenous adm inistration code = GLUBED) of N-acetylcy steine which resultsin blood concentrations >5 mg/dL will cause overestim ationof blood glucose results . Do not use during intraven ousinfusion of N'acetylcyst eine. [id number] 06:14:00 Test Item Value Reference Range Interpretation Comments GLUBED (test 100 mg/dL 65-99 H Intravenous adm inistration code = GLUBED) of N-acetylcy steine which resultsin blood concentrations >5 mg/dL will cause overestim ationof blood glucose results . Do not use during intraven ousinfusion of N'acetylcyst eine. [id number] 06:13:00 Test Item Value Reference Range Interpretation Comments PHOSPHOROUS (test code = PHOS) 7.5 mg/dL 2.5-4.9 H [id number] 06:13:00 Test Item Value Reference Range Interpretation Comments MAGNESIUM (test code = MAG) 1.8 mg/dL 1.8-2.4 N BASIC METABOLIC [id number] 06:13:00 Test Item Value Reference Range Interpretation Comments SODIUM (test code = 137 mmol/L 135-145 N NA) POTASSIUM (test code 4.7 mmol/L 3.5-5.1 N = K) CHLORIDE (test code = 106 mmol/L 98-107 N CL) CARBON DIOXIDE (test 20 mmol/L 21-32 L code = CO2) ANION GAP (test code 15.7 2.0-16.0 = GAP) GLUCOSE (test code = 107 mg/dL 65-99 H GLU) BLOOD UREA NITROGEN 63 mg/dL 4-23 H (test code = BUN) GLOMERULAR FILTRATION 12 ml/min L The es timated RATE (test code = glomerular filtration GFR) rate is compute d usingpatient ra ce, age (>18), sex, and serum creatinine. If anyof the needed data elements are mi ssing the Laboratory cannot compute an jorge mation of the glomerul ar filtration rate . CREATININE (test code 5.5 mg/dL 0.6-1.5 H = CREAT) BUN/CREATININE RATIO 11.5 12.0-20.0 L (test code = BUN/CREA) CALCIUM (test code = 6.8 mg/dL 8.5-10.1 LL Critica l Value CA) reported toFirs t Name:MORAVIAN Last Name:JOAN RNRESULTS READ BACK AND VERIFIEDby NCLAB.NORMARonald, on 11/14/20, @ 061 3. CBC W/AUTO [id number] 05:28:00 Test Item Value Reference Range Interpretation Comments WHITE BLOOD CELL (test code = 27.4 10 3/uL 4.5-11.0 H WBC) RED BLOOD CELL (test code = 2.81 10 6/uL 4.30-5.90 L RBC) HEMOGLOBIN (test code = HGB) 8.3 g/dL 14.0-18.0 L HEMATOCRIT (test code = HCT) 26.1 % 40.0-55.0 L MEAN CELL VOLUME (test code = 93 fL 81-102 N MCV) MEAN CELL HGB (test code = 29.5 pg 26.0-34.0 N MCH) MEAN CELL HGB CONCENTRATION 31.8 g/dL 31.0-37.0 N (test code = MCHC) RED CELL DISTRIBUTION WIDTH 15.3 % 11.6-14.4 H (test code = RDW) PLATELET COUNT (test code = 244 10 3/uL 150-400 N PLT) MEAN PLATELET VOLUME (test 9.4 fL 9.0-12.6 N code = MPV) NEUTROPHIL % (test code = NT%) 84.6 % 33.0-76.0 H IMMATURE GRANULOCYTE % (test 4.4 % 0.0-1.0 H code = IG%) LYMPHOCYTE % (test code = LY%) 4.7 % 14.0-56.4 L MONOCYTE % (test code = MO%) 5.6 % 0.0-12.9 N EOSINOPHIL % (test code = EO%) 0.4 % 0.0-7.0 N BASOPHIL % (test code = BA%) 0.3 % 0-2.0 N NUCLEATED RBC % (test code = 0.0 % 0-0.2 N NRBC%) NEUTROPHIL # (test code = NT#) 23.18 10 3/uL 1.5-7.0 H IMMATURE GRANULOCYTE # (test 1.220 x10 3/uL 0.000-0.100 H code = IG#) LYMPHOCYTE # (test code = LY#) 1.30 10 3/uL 1.50-4.00 L MONOCYTE # (test code = MO#) 1.55 10 3/uL 0.20-0.80 H EOSINOPHIL # (test code = EO#) 0.10 10 3/uL 0.0-0.5 N BASOPHIL # (test code = BA#) 0.09 10 3/uL 0.0-0.1 N [id number] 20:22:00 Test Item Value Reference Range Interpretation Comments GLUBED (test 114 mg/dL 65-99 H Intravenous adm inistration code = GLUBED) of N-acetylcy steine which resultsin blood concentrations >5 mg/dL will cause overestim ationof blood glucose results . Do not use during intraven ousinfusion of N'acetylcyst eine. [id number] 15:24:00 Test Item Value Reference Range Interpretation Comments GLUBED (test 121 mg/dL 65-99 H Intravenous adm inistration code = GLUBED) of N-acetylcy steine which resultsin blood concentrations >5 mg/dL will cause overestim ationof blood glucose results . Do not use during intraven ousinfusion of N'acetylcyst eine. [id number] 11:38:00 Test Item Value Reference Range Interpretation Comments GLUBED (test 132 mg/dL 65-99 H Intravenous adm inistration code = GLUBED) of N-acetylcy steine which resultsin blood concentrations >5 mg/dL will cause overestim ationof blood glucose results . Do not use during intraven ousinfusion of N'acetylcyst eine. PATHOLOGIST [id number] 09:02:00 Test Item Value Reference Range Interpretation Comments PATHOLOGIST LEUKOCYTOSIS WI TH ABSOLUTE FINDINGS (test TOXIC NEUTROP HILIA code = PATHRVW) INCLUDINGOCC ASIONAL VACUOLATED NEUTROPHILS, TO XIC LEFT SHIFT,ABSOLUTE REACTIVE MONOCYTOSIS AND ABSOLUTE LYMOHOPENIASUGG ESTIVE OF SYSTEMIC INFECTION/INFLA MMATION. EXCLUDE SEPSIS AND VIRAL INFECTION INCLU DING COVID-19. MACROCYTIC ANEM IA WITH POLYCHROMASIA A ND POIKILOCYTOSISI NCLUDING LEONEL CELLS, OVALOCYT ES, ELLIPTOCYTES AN DOCCASIONAL SPHEROCYTES SUG GESTIVE OF BLOOD LOSS/HEMO LYSIS. SUGGEST CORRELATION WIT H DEBORAH, HAPTOGLOBIN, LD H, RETICULOCYTECOU NT AND BILIRUBIN LEVEL S. THROMBOCYTOSIS, FAVOR REACTIVE. CBC W/MANUAL [id number] 09:02:00 Test Item Value Reference Range Interpretation Comments WHITE BLOOD CELL 43.9 10 3/uL 4.5-11.0 HH Critical Va lue (test code = WBC) reported t oFirst Name:MEHDI prakash Name:ADEOLA RNRESULTS READ BACK AND VERIFIEDby NCLAB.GD, on 11/10/20, @ 122 6. RED BLOOD CELL (test 1.90 10 6/uL 4.30-5.90 L code = RBC) HEMOGLOBIN (test code 5.9 g/dL 14.0-18.0 LL Critic al Value = HGB) reported toFirs t Name:MEHDI Shahid t Name:ADEOLA RNRESULTS READ BACK AND VERIFIEDby NCLAB.GD, on 11/10/20, @ 122 7. HEMATOCRIT (test code 19.0 % 40.0-55.0 L = HCT) MEAN CELL VOLUME 100 fL 81-102 N (test code = MCV) MEAN CELL HGB (test 31.1 pg 26.0-34.0 N code = MCH) MEAN CELL HGB 31.1 g/dL 31.0-37.0 N CONCENTRATION (test code = MCHC) RED CELL DISTRIBUTION 13.7 % 11.6-14.4 N WIDTH (test code = RDW) PLATELET COUNT (test 653 10 3/uL 150-400 H code = PLT) MEAN PLATELET VOLUME 9.5 fL 9.0-12.6 N (test code = MPV) NEUTROPHIL # (test 39.08 10 3/uL 1.5-7.0 H code = NT#) IMMATURE GRANULOCYTE 1.520 x10 3/uL 0.000-0.100 H # (test code = IG#) LYMPHOCYTE # (test 0.87 10 3/uL 1.50-4.00 L code = LY#) MONOCYTE # (test code 2.28 10 3/uL 0.20-0.80 H = MO#) EOSINOPHIL # (test 0.01 10 3/uL 0.0-0.5 N code = EO#) BASOPHIL # (test code 0.13 10 3/uL 0.0-0.1 H = BA#) TOTAL CELLS COUNTED 100 #CELLS (test code = TCC) SEGMENTED NEUTROPHILS 79 % 33-76 H (test code = SEG) LYMPHOCYTE (test code 3 % 14-54 L = LYMPH) PLATELET ESTIMATE INCREASED ADEQUATE (test code = PLTEST) PLATELET MORPHOLOGY NORMAL PLT MORPH NORMAL (test code = PLTMORPH) BAND NEUTROPHIL (test 8 % 0-1 H code = BAND) MONOCYTE (test code = 7 % 0-12 N MON) EOSINOPHIL (test code 0 % 0-7 N = EOS) BASOPHIL (test code = 0 % 0.0-2.0 N BASO) POIKILOCYTOSIS (test 1+ NONE SEEN A code = POIK) ANISOCYTOSIS (test 1+ NONE SEEN A code = ANISO) CRENATED CELLS (test 2+ NONE SEEN A code = CREN) TOXIC GRANULATION MODERATE NONE SEEN (test code = TOX) RBC MORPHOLOGY Abnormal NORMAL COMMENT (test code = MOC) METAMYELOCYTE (test 3 % 0-0 H code = META) [id number] 07:41:00 Test Item Value Reference Range Interpretation Comments GLUBED (test 127 mg/dL 65-99 H Intravenous adm inistration code = GLUBED) of N-acetylcy steine which resultsin blood concentrations >5 mg/dL will cause overestim ationof blood glucose results . Do not use during intraven ousinfusion of N'acetylcyst eine. CBC W/AUTO [id number] 06:32:00 Test Item Value Reference Range Interpretation Comments WHITE BLOOD CELL (test code = 23.4 10 3/uL 4.5-11.0 H WBC) RED BLOOD CELL (test code = 2.71 10 6/uL 4.30-5.90 L RBC) HEMOGLOBIN (test code = HGB) 8.0 g/dL 14.0-18.0 L HEMATOCRIT (test code = HCT) 24.7 % 40.0-55.0 L MEAN CELL VOLUME (test code = 91 fL 81-102 N MCV) MEAN CELL HGB (test code = 29.5 pg 26.0-34.0 N MCH) MEAN CELL HGB CONCENTRATION 32.4 g/dL 31.0-37.0 N (test code = MCHC) RED CELL DISTRIBUTION WIDTH 15.3 % 11.6-14.4 H (test code = RDW) PLATELET COUNT (test code = 215 10 3/uL 150-400 N PLT) MEAN PLATELET VOLUME (test 9.7 fL 9.0-12.6 N code = MPV) NEUTROPHIL % (test code = NT%) 82.5 % 33.0-76.0 H IMMATURE GRANULOCYTE % (test 5.6 % 0.0-1.0 H code = IG%) LYMPHOCYTE % (test code = LY%) 5.0 % 14.0-56.4 L MONOCYTE % (test code = MO%) 6.0 % 0.0-12.9 N EOSINOPHIL % (test code = EO%) 0.6 % 0.0-7.0 N BASOPHIL % (test code = BA%) 0.3 % 0-2.0 N NUCLEATED RBC % (test code = 0.0 % 0-0.2 N NRBC%) NEUTROPHIL # (test code = NT#) 19.31 10 3/uL 1.5-7.0 H IMMATURE GRANULOCYTE # (test 1.300 x10 3/uL 0.000-0.100 H code = IG#) LYMPHOCYTE # (test code = LY#) 1.17 10 3/uL 1.50-4.00 L MONOCYTE # (test code = MO#) 1.41 10 3/uL 0.20-0.80 H EOSINOPHIL # (test code = EO#) 0.14 10 3/uL 0.0-0.5 N BASOPHIL # (test code = BA#) 0.06 10 3/uL 0.0-0.1 N BASIC METABOLIC [id number] 06:17:00 Test Item Value Reference Range Interpretation Comments SODIUM (test code = 136 mmol/L 135-145 N NA) POTASSIUM (test code 4.1 mmol/L 3.5-5.1 N = K) CHLORIDE (test code = 104 mmol/L 98-107 N CL) CARBON DIOXIDE (test 25 mmol/L 21-32 N code = CO2) ANION GAP (test code 11.1 2.0-16.0 N = GAP) GLUCOSE (test code = 142 mg/dL 65-99 H GLU) BLOOD UREA NITROGEN 49 mg/dL 4-23 H (test code = BUN) GLOMERULAR FILTRATION 14 ml/min L The es timated RATE (test code = glomerular filtration GFR) rate is compute d usingpatient ra ce, age (>18), sex, and serum creatinine. If anyof the needed data elements are mi ssing the Laboratory cannot compute an jorge mation of the glomerul ar filtration rate . CREATININE (test code 4.7 mg/dL 0.6-1.5 H = CREAT) BUN/CREATININE RATIO 10.4 12.0-20.0 L (test code = BUN/CREA) CALCIUM (test code = 7.1 mg/dL 8.5-10.1 L CA) LIVER FUNCTION [id number] 06:17:00 Test Item Value Reference Range Interpretation Comments TOTAL PROTEIN 5.9 g/dL 6.4-8.2 L (test code = PROT) ALBUMIN (test code 1.6 g/dL 3.4-5.0 L = ALB) GLOBULIN (test 4.3 g/dL 2.3-3.5 H code = GLOB) BILIRUBIN TOTAL 0.4 mg/dL 0.2-1.2 N Use of this assay is not (test code = BILT) recommend ed for patients undergoingtreat ment with Eltrombopag due to the potential for falselyelevated results. BILIRUBIN DIRECT 0.2 mg/dL 0.0-0.3 N (test code = BILD) BILIRUBIN INDIRECT 0.2 mg/dL 0.0-0.8 N (test code = BILIND) SGOT/AST (test 20 U/L 15-37 N code = AST) SGPT/ALT (test 33 U/L 6-50 N code = ALT) ALKALINE 101 U/L 45-117 N PHOSPHATASE (test code = ALKP) [id number] 06:17:00 Test Item Value Reference Range Interpretation Comments PHOSPHOROUS (test code = PHOS) 5.1 mg/dL 2.5-4.9 H [id number] 06:17:00 Test Item Value Reference Range Interpretation Comments MAGNESIUM (test code = MAG) 1.8 mg/dL 1.8-2.4 N [id number] 06:17:00 Test Item Value Reference Range Interpretation Comments VANCOMYCIN (test code = VANCO) 18.0 ug/mL 5.0-40.0 N PROTHROMBIN [id number] 06:01:00 Test Item Value Reference Range Interpretation Comments PROTHROMBIN TIME 18.0 SECONDS 9.4-12.5 H PATIENT (test code = PTP) INTERNATIONAL 1.5 RATIO 0.8-1.1 H THE INR IS USE FUL ONLY NORMAL RATIO (test FOR MONIT ORING code = INR) ANTICOAGULANT THERAPY.IT MAY BE UNRELIABLE IN T HE INITIAL PHASE O F ANTICOAGULATION AND IN UNSTABLE PATIEN TS. 2.0-3.0 is the recommended INR for the following:Preve ntion of venous thrombol ism in high-risk patients;treatm ent of venous thrombos is and pulmonary embol ism aftera course o f heparin; preven tion of systemic emboli sm in avariety of con dition, including atria l fibrillation andprosthetic t issue heart valves.2. 5-3.5 is the recommended INR for the following:Prost hetic mechanical hear t values and/or recurren t systemicemboliz ation. THROMBOPLASTIN TIME [id number] 06:01:00 Test Item Value Reference Range Interpretation Comments THROMBOPLASTIN TIME PARTIAL 35.2 SECONDS 25.1-36.5 N (test code = PTT) [id number] 19:50:00 Test Item Value Reference Range Interpretation Comments GLUBED (test 169 mg/dL 65-99 H Intravenous adm inistration code = GLUBED) of N-acetylcy steine which resultsin blood concentrations >5 mg/dL will cause overestim ationof blood glucose results . Do not use during intraven ousinfusion of N'acetylcyst eine. AB HEPATITIS B SURFACE [id number] 18:17:00 Test Item Value Reference Range Interpretation Comments AB HEPATITIS B SURFACE QUAL (test REACTIVE NonReactive A code = HBSAB) AB HEPATITIS B CORE [id number] 18:17:00 Test Item Value Reference Range Interpretation Comments AB HEPATITIS B CORE TOTAL (test Non-Reactive NONREACTIVE code = HBCAB) AB HEPATITIS [id number] 18:17:00 Test Item Value Reference Range Interpretation Comments AB HEPATITIS C (test code = Non-Reactive NONREACTIVE HCVAB) [id number] 16:38:00 Test Item Value Reference Range Interpretation Comments GLUBED (test 175 mg/dL 65-99 H Intravenous adm inistration code = GLUBED) of N-acetylcy steine which resultsin blood concentrations >5 mg/dL will cause overestim ationof blood glucose results . Do not use during intraven ousinfusion of N'acetylcyst eine. ANTINUCLEAR ANTIBODIES [id number] 16:09:00 Test Item Value Reference Range Interpretation Comments JESSE SCREEN (test Negative See_Comment Negative < 1:80 Borderline code = ANASCR) 1:80 Positive >1:80ICAP nomenclature: A C-0For more information abo ut Hep-2 cell patterns useANApatterns. org, the official websit e for theInternationa miguel Consensus on Antinuclear Antibody (JESSE)Patterns (ICAP).Performe d At: [facility] [address] [id number] Keyshawn Gonzalez MD Ph:[phone] [ Automated message] The sy stem which generated this result transmitted ref erence range: (). The reference range was not u sed to interpret this result as normal/abnormal . BASIC METABOLIC [id number] 13:07:00 Test Item Value Reference Range Interpretation Comments SODIUM (test code = 136 mmol/L 135-145 N NA) POTASSIUM (test code 4.4 mmol/L 3.5-5.1 N = K) CHLORIDE (test code = 104 mmol/L 98-107 N CL) CARBON DIOXIDE (test 22 mmol/L 21-32 N code = CO2) ANION GAP (test code 14.4 2.0-16.0 N = GAP) GLUCOSE (test code = 155 mg/dL 65-99 H GLU) BLOOD UREA NITROGEN 81 mg/dL 4-23 H (test code = BUN) GLOMERULAR FILTRATION 10 ml/min L The es timated RATE (test code = glomerular filtration GFR) rate is compute d usingpatient ra ce, age (>18), sex, and serum creatinine. If anyof the needed data elements are mi ssing the Laboratory cannot compute an jroge mation of the glomerul ar filtration rate . CREATININE (test code 6.4 mg/dL 0.6-1.5 H = CREAT) BUN/CREATININE RATIO 12.7 12.0-20.0 N (test code = BUN/CREA) CALCIUM (test code = 7.2 mg/dL 8.5-10.1 L CA) CBC W/AUTO [id number] 12:55:00 Test Item Value Reference Range Interpretation Comments WHITE BLOOD CELL (test code = 28.3 10 3/uL 4.5-11.0 H WBC) RED BLOOD CELL (test code = 2.73 10 6/uL 4.30-5.90 L RBC) HEMOGLOBIN (test code = HGB) 8.3 g/dL 14.0-18.0 L HEMATOCRIT (test code = HCT) 24.7 % 40.0-55.0 L MEAN CELL VOLUME (test code = 91 fL 81-102 N MCV) MEAN CELL HGB (test code = 30.4 pg 26.0-34.0 N MCH) MEAN CELL HGB CONCENTRATION 33.6 g/dL 31.0-37.0 N (test code = MCHC) RED CELL DISTRIBUTION WIDTH 15.6 % 11.6-14.4 H (test code = RDW) PLATELET COUNT (test code = 246 10 3/uL 150-400 N PLT) MEAN PLATELET VOLUME (test 9.4 fL 9.0-12.6 N code = MPV) NEUTROPHIL % (test code = NT%) 84.6 % 33.0-76.0 H IMMATURE GRANULOCYTE % (test 4.1 % 0.0-1.0 H code = IG%) LYMPHOCYTE % (test code = LY%) 4.6 % 14.0-56.4 L MONOCYTE % (test code = MO%) 6.2 % 0.0-12.9 N EOSINOPHIL % (test code = EO%) 0.2 % 0.0-7.0 N BASOPHIL % (test code = BA%) 0.3 % 0-2.0 N NUCLEATED RBC % (test code = 0.0 % 0-0.2 N NRBC%) NEUTROPHIL # (test code = NT#) 23.88 10 3/uL 1.5-7.0 H IMMATURE GRANULOCYTE # (test 1.150 x10 3/uL 0.000-0.100 H code = IG#) LYMPHOCYTE # (test code = LY#) 1.31 10 3/uL 1.50-4.00 L MONOCYTE # (test code = MO#) 1.76 10 3/uL 0.20-0.80 H EOSINOPHIL # (test code = EO#) 0.07 10 3/uL 0.0-0.5 N BASOPHIL # (test code = BA#) 0.09 10 3/uL 0.0-0.1 N [id number] 11:42:00 Test Item Value Reference Range Interpretation Comments GLUBED (test 152 mg/dL 65-99 H Intravenous adm inistration code = GLUBED) of N-acetylcy steine which resultsin blood concentrations >5 mg/dL will cause overestim ationof blood glucose results . Do not use during intraven ousinfusion of N'acetylcyst eine. CBC W/MANUAL [id number] 08:05:00 Test Item Value Reference Range Interpretation Comments WHITE BLOOD CELL 27.5 10 3/uL 4.5-11.0 H (test code = WBC) RED BLOOD CELL (test 2.26 10 6/uL 4.30-5.90 L code = RBC) HEMOGLOBIN (test code 6.6 g/dL 14.0-18.0 LL Critic al Value = HGB) reported toFirs t Name:ABHINAV Last Name:JAYCE SARAHRESULTS READ BACK AND VERIFIEDby NCLAB.RXP, on 11/12/20, @ 061 2. HEMATOCRIT (test code 20.3 % 40.0-55.0 L = HCT) MEAN CELL VOLUME 90 fL 81-102 N (test code = MCV) MEAN CELL HGB (test 29.2 pg 26.0-34.0 N code = MCH) MEAN CELL HGB 32.5 g/dL 31.0-37.0 N CONCENTRATION (test code = MCHC) RED CELL DISTRIBUTION 15.8 % 11.6-14.4 H WIDTH (test code = RDW) PLATELET COUNT (test 268 10 3/uL 150-400 N code = PLT) MEAN PLATELET VOLUME 9.6 fL 9.0-12.6 N (test code = MPV) NEUTROPHIL # (test 22.82 10 3/uL 1.5-7.0 H code = NT#) IMMATURE GRANULOCYTE 1.190 x10 3/uL 0.000-0.100 H # (test code = IG#) LYMPHOCYTE # (test 1.51 10 3/uL 1.50-4.00 N code = LY#) MONOCYTE # (test code 1.83 10 3/uL 0.20-0.80 H = MO#) EOSINOPHIL # (test 0.10 10 3/uL 0.0-0.5 N code = EO#) BASOPHIL # (test code 0.05 10 3/uL 0.0-0.1 N = BA#) TOTAL CELLS COUNTED 100 #CELLS (test code = TCC) SEGMENTED NEUTROPHILS 88 % 33-76 H (test code = SEG) LYMPHOCYTE (test code 5 % 14-54 L = LYMPH) PLATELET ESTIMATE ADEQUATE ADEQUATE (test code = PLTEST) PLATELET MORPHOLOGY NORMAL PLT MORPH NORMAL (test code = PLTMORPH) BAND NEUTROPHIL (test 3 % 0-1 H code = BAND) MONOCYTE (test code = 2 % 0-12 N MON) EOSINOPHIL (test code 1 % 0-7 N = EOS) METAMYELOCYTE (test 1 % 0-0 H code = META) POLYCHROMASIA (test 1+ NONE SEEN A code = POLC) HYPOCHROMIA (test 1+ NONE SEEN A code = HYPO) MICROCYTOSIS (test 2+ NONE SEEN A code = MICR) [id number] 07:35:00 Test Item Value Reference Range Interpretation Comments GLUBED (test 149 mg/dL 65-99 H Intravenous adm inistration code = GLUBED) of N-acetylcy steine which resultsin blood concentrations >5 mg/dL will cause overestim ationof blood glucose results . Do not use during intraven ousinfusion of N'acetylcyst eine. BASIC METABOLIC [id number] 06:35:00 Test Item Value Reference Range Interpretation Comments SODIUM (test code = 137 mmol/L 135-145 N NA) POTASSIUM (test code 4.4 mmol/L 3.5-5.1 N = K) CHLORIDE (test code = 107 mmol/L 98-107 N CL) CARBON DIOXIDE (test 21 mmol/L 21-32 N code = CO2) ANION GAP (test code 13.4 2.0-16.0 = GAP) GLUCOSE (test code = 157 mg/dL 65-99 H GLU) BLOOD UREA NITROGEN 79 mg/dL 4-23 H (test code = BUN) GLOMERULAR FILTRATION 10 ml/min L The es timated RATE (test code = glomerular filtration GFR) rate is compute d usingpatient ra ce, age (>18), sex, and serum creatinine. If anyof the needed data elements are mi ssing the Laboratory cannot compute an jorge mation of the glomerul ar filtration rate . CREATININE (test code 6.6 mg/dL 0.6-1.5 H = CREAT) BUN/CREATININE RATIO 12.0 12.0-20.0 N (test code = BUN/CREA) CALCIUM (test code = 6.8 mg/dL 8.5-10.1 LL Critica l Value CA) reported toFyosef t Name:STU prakash Name:RN RESULTS READ BACK AND JESSA Jose [id number], on , @ 0634. LIVER FUNCTION [id number] 06:35:00 Test Item Value Reference Range Interpretation Comments TOTAL PROTEIN 5.7 g/dL 6.4-8.2 L (test code = PROT) ALBUMIN (test code 1.7 g/dL 3.4-5.0 L = ALB) GLOBULIN (test 4.0 g/dL 2.3-3.5 H code = GLOB) BILIRUBIN TOTAL 0.5 mg/dL 0.2-1.2 N Use of this assay is not (test code = BILT) recommend ed for patients undergoingtreat ment with Eltrombopag due to the potential for falselyelevated results. BILIRUBIN DIRECT 0.2 mg/dL 0.0-0.3 N (test code = BILD) BILIRUBIN INDIRECT 0.3 mg/dL 0.0-0.8 N (test code = BILIND) SGOT/AST (test 30 U/L 15-37 N code = AST) SGPT/ALT (test 46 U/L 6-50 N code = ALT) ALKALINE 107 U/L 45-117 N PHOSPHATASE (test code = ALKP) [id number] 06:35:00 Test Item Value Reference Range Interpretation Comments MAGNESIUM (test code = MAG) 1.9 mg/dL 1.8-2.4 N PROTHROMBIN [id number] 06:02:00 Test Item Value Reference Range Interpretation Comments PROTHROMBIN TIME 18.0 SECONDS 9.4-12.5 H PATIENT (test code = PTP) INTERNATIONAL 1.6 RATIO 0.8-1.1 H THE INR IS USE FUL ONLY NORMAL RATIO (test FOR MONIT ORING code = INR) ANTICOAGULANT THERAPY.IT MAY BE UNRELIABLE IN T HE INITIAL PHASE O F ANTICOAGULATION AND IN UNSTABLE PATIEN TS. 2.0-3.0 is the recommended INR for the following:Preve ntion of venous thrombol ism in high-risk patients;treatm ent of venous thrombos is and pulmonary embol ism aftera course o f heparin; preven tion of systemic emboli sm in avariety of con dition, including atria l fibrillation andprosthetic t issue heart valves.2. 5-3.5 is the recommended INR for the following:Prost hetic mechanical hear t values and/or recurren t systemicemboliz ation. THROMBOPLASTIN TIME [id number] 06:02:00 Test Item Value Reference Range Interpretation Comments THROMBOPLASTIN TIME PARTIAL 34.6 SECONDS 25.1-36.5 N (test code = PTT) [id number] 20:31:00 Test Item Value Reference Range Interpretation Comments GLUBED (test 159 mg/dL 65-99 H Intravenous adm inistration code = GLUBED) of N-acetylcy steine which resultsin blood concentrations >5 mg/dL will cause overestim ationof blood glucose results . Do not use during intraven ousinfusion of N'acetylcyst eine. [id number] 16:12:00 Test Item Value Reference Range Interpretation Comments GLUBED (test 161 mg/dL 65-99 H Intravenous adm inistration code = GLUBED) of N-acetylcy steine which resultsin blood concentrations >5 mg/dL will cause overestim ationof blood glucose results . Do not use during intraven ousinfusion of N'acetylcyst eine. [id number] 15:40:00 Test Item Value Reference Range Interpretation Comments VANCOMYCIN (test code = VANCO) 14.4 ug/mL 5.0-40.0 N UR PROTEIN [id number] 14:13:00 Test Item Value Reference Range Interpretation Comments UR PROTEIN RANDOM 124 mg/dL NO REFEREN CE RANGE (test code = PROTU) ESTABLIS HED FOR RANDOM URINE PROTEIN URIC [id number] 14:10:00 Test Item Value Reference Range Interpretation Comments URIC ACID (test code = URIC) 10.9 mg/dL 2.6-7.2 H PARATHYROID [id number] 14:10:00 Test Item Value Reference Range Interpretation Comments PARATHYROID HORMONE (test code = 418.1 pg/mL 18.4-80.1 H PTH) VITAMIN D [id number] 14:10:00 Test Item Value Reference Range Interpretation Comments VITAMIN D 25-HYDROXY 8 ng/mL 30-100 L Level n g/mLDeficient (test code = VITD25) <20Insu fficient 20-29Optimal le vels 30-100 UA RFLX MICR CULT IF [id number] 13:45:00 Test Item Value Reference Range Interpretation Comments UA COLOR (test code = COLU) YELLOW YELLOW UA APPEARANCE (test code = CLOUDY CLEAR A APPU) UA GLUCOSE DIPSTICK (test NEGATIVE NEGATIVE code = DGLUU) UA BILIRUBIN DIPSTICK (test NEGATIVE NEGATIVE code = BILU) UA KETONE DIPSTICK (test code NEGATIVE NEGATIVE = KETU) UA SPECIFIC GRAVITY (test 1.014 1.005-1.025 N code = SGU) UA BLOOD DIPSTICK (test code 2+ NEGATIVE A = REJI) UA PH DIPSTICK (test code = 5.0 5.0-8.0 HANG) UA PROTEIN DIPSTICK (test 1+ NEGATIVE A code = PROU) UA UROBILINOGEN DIPSTICK NEGATIVE EU/dL 0.1-0.2 (test code = URO) UA NITRITE DIPSTICK (test NEGATIVE NEGATIVE code = ALISON) UA LEUKOCYTE ESTERASE 1+ NEGATIVE A DIPSTICK (test code = LEUU) UA MICROSCOPIC NEEDED? (test YES NO A code = UAMICRO) UA WBC (test code = WBCU) 11-20 /hpf 0-3 A UA RBC (test code = RBCU) 11-20 /hpf 0-3 A UA BACTERIA (test code = RARE /HPF NEGATIVE BACU) UA SQUAMOUS CELLS (test code RARE /HPF FEW = SQU) UA MUCUS (test code = MUCU) OCCASIONAL /lpf UA AMORPHOUS SEDIMENT (test FEW /hpf code = AMORU) Indication for culture: RiskForSepsis-no oth [id number] 11:29:00 Test Item Value Reference Range Interpretation Comments GLUBED (test 185 mg/dL 65-99 H Intravenous adm inistration code = GLUBED) of N-acetylcy steine which resultsin blood concentrations >5 mg/dL will cause overestim ationof blood glucose results . Do not use during intraven ousinfusion of N'acetylcyst eine. - RETRO [id number] 08:43:00 [facility] : 1975 Sex: MPatient Name: VALDO LIVINGSTON Unit No: [id number] EXAMS: CPT CODE: [id number] [facility] 7 [id number] EXAMINATION: Renal ultrasound INDICATION: MARILYN COMPARISON: None LOCATION: W1 TECHNIQUE: Grayscale and Doppler sonographic images were obtained of the kidneys and urinary bladder FINDINGS: Right kidney measures 10.6 x 5.6 x 4.6 cm. Normal cortical echogenicity. Normal cortical thickness. No hydronephrosis. Left kidney measures 10.3 x 5.4 x 5.1 cm. Normal cortical echogenicity. Normal cortical thickness. No hydronephrosis. Urinary bladder is decompressed by Polanco catheter. IMPRESSION: Unremarkablerenal ultrasound. at 0843 Reported and signed by: Alfred Morales MD CC: Self Referred; Jordan Vaughn MD; Wilmar Child MD Technologist: PiyushcGowstef Probe: Trscr Dt/Tm: 11/11/2020 (0843) by:[email or web address] Electronic Signature Date/Time: 11/11/2020 (0843)Orig Print D/T: S: 11/11/2020 (0846) Name: [facility]: [id number] - [place] [address] : 1975 Age: 45 Sex: [place] [address] Loc: NC.107 1 Exam Date: 11/11/2020 Status: ADM IN PH: FAX: PAGE 1 Signed Report- DUP LE ART [id number] 08:40:00 [facility] : 1975 Sex: MPatient Name: VALDO LIVINGSTON Unit No: [id number] EXAMS: CPT CODE: [id number] DUP LE ART ARIC [id number] BILATERAL LARGE PULMONARY ARTERIAL ULTRASOUND DICTATION LOCATION A1 HISTORY: Foot wound. Recent left BKA. TECHNIQUE: Transcutaneous sonography of the arterial system in each leg was performed with grayscale, spectral, color- flow and Doppler analysis at 5:17 AM. Examination of the right common femoral areas limited due to a central line in place. FINDINGS: Mild to moderate diffuse atherosclerotic plaque is noted in each leg without evidence of critical narrowing or vascular occlusion. Doppler evaluation shows mixed biphasic and monophasic waveforms throughout the entire right leg and foot as well as in the left upper leg indicating mild to moderate diffuse hemodynamic significant disease. Ankle-brachial index could not be performed due to patient's pain. IMPRESSION: Mild to moderate diffuseatherosclerotic disease throughout each leg without evidence of critical narrowing or vascular occlusion. Hemodynamic evaluation suggest mild to moderate diffuse hemodynamic significant disease on eachside. at 0840 Reported and signed by: Abhijeet Lawson Jr, MD CC: Self Referred; Wilmar Child MD; Justice Howell MD Technologist: Beatris Vigil Probe: [facility] Dt/Tm: 11/11/2020 (0840) by:Nelson Electronic Signature Date/Time: 11/11/2020 (0840)Orig Print D/T: S: 11/11/2020 (0843) Name: VALDO LIVINGSTON [facility] [place] Phys: [place] [address] : 1975 Age: 45 Sex: [place] [address] Loc: PA.107 1 Exam Date: 11/11/2020 Status: ADM IN PH: FAX: PAGE 1 Signed ReportCBC W/MANUAL [id number] 08:24:00 Test Item Value Reference Range Interpretation Comments WHITE BLOOD CELL 33.6 10 3/uL 4.5-11.0 HH Critical Va lue (test code = WBC) reported t Erniet Name:KAILEY Last Name:ZARINA RNRESULTS READ BACK AND VERIFIEDby NCLAB.RXP, on 11/11/20, @ 051 5. RED BLOOD CELL (test 2.45 10 6/uL 4.30-5.90 L code = RBC) HEMOGLOBIN (test code 7.4 g/dL 14.0-18.0 L = HGB) HEMATOCRIT (test code 22.1 % 40.0-55.0 L = HCT) MEAN CELL VOLUME 90 fL 81-102 (test code = MCV) MEAN CELL HGB (test 30.2 pg 26.0-34.0 N code = MCH) MEAN CELL HGB 33.5 g/dL 31.0-37.0 N CONCENTRATION (test code = MCHC) RED CELL DISTRIBUTION 15.3 % 11.6-14.4 H WIDTH (test code = RDW) PLATELET COUNT (test 320 10 3/uL 150-400 N code = PLT) MEAN PLATELET VOLUME 9.7 fL 9.0-12.6 N (test code = MPV) NEUTROPHIL # (test 29.13 10 3/uL 1.5-7.0 H code = NT#) IMMATURE GRANULOCYTE 1.340 x10 3/uL 0.000-0.100 H # (test code = IG#) LYMPHOCYTE # (test 1.00 10 3/uL 1.50-4.00 L code = LY#) MONOCYTE # (test code 2.01 10 3/uL 0.20-0.80 H = MO#) EOSINOPHIL # (test 0.01 10 3/uL 0.0-0.5 N code = EO#) BASOPHIL # (test code 0.11 10 3/uL 0.0-0.1 H = BA#) TOTAL CELLS COUNTED 100 #CELLS (test code = TCC) SEGMENTED NEUTROPHILS 80 % 33-76 H (test code = SEG) LYMPHOCYTE (test code 5 % 14-54 L = LYMPH) PLATELET ESTIMATE ADEQUATE ADEQUATE (test code = PLTEST) PLATELET MORPHOLOGY NORMAL PLT MORPH NORMAL (test code = PLTMORPH) BAND NEUTROPHIL (test 5 % 0-1 H code = BAND) MONOCYTE (test code = 10 % 0-12 N MON) ANISOCYTOSIS (test 1+ NONE SEEN A code = ANISO) RBC MORPHOLOGY Normal NORMAL COMMENT (test code = MOC) BASIC METABOLIC [id number] 07:40:00 Test Item Value Reference Range Interpretation Comments SODIUM (test code = 139 mmol/L 135-145 N NA) POTASSIUM (test code 5.3 mmol/L 3.5-5.1 H = K) CHLORIDE (test code = 109 mmol/L 98-107 H CL) CARBON DIOXIDE (test 16 mmol/L 21-32 L code = CO2) ANION GAP (test code 19.3 2.0-16.0 H = GAP) GLUCOSE (test code = 170 mg/dL 65-99 H GLU) BLOOD UREA NITROGEN 106 mg/dL 4-23 HH Critical Value (test code = BUN) reported t oFirst Name:SAADIA Last Name:GHULAM LTS READ BACK AND VERIFIEDby NCLA B.SS1, on 11/11/20, @ 0738. GLOMERULAR FILTRATION 7 ml/min L The es timated RATE (test code = glomerular filtration GFR) rate is compute d usingpatient ra ce, age (>18), sex, and serum creatinine. If anyof the needed data elements are mi ssing the Laboratory cannot compute an jorge mation of the glomerul ar filtration rate . CREATININE (test code 9.0 mg/dL 0.6-1.5 H = CREAT) BUN/CREATININE RATIO 11.8 12.0-20.0 L (test code = BUN/CREA) CALCIUM (test code = 7.0 mg/dL 8.5-10.1 L CA) NEED TO CONFORM INFORMED [facility] [id number] 07:40:00 Test Item Value Reference Range Interpretation Comments TOTAL PROTEIN 5.8 g/dL 6.4-8.2 L (test code = PROT) ALBUMIN (test code 1.7 g/dL 3.4-5.0 L = ALB) GLOBULIN (test 4.1 g/dL 2.3-3.5 H code = GLOB) BILIRUBIN TOTAL 0.6 mg/dL 0.2-1.2 N Use of this assay is not (test code = BILT) recommend ed for patients undergoingtreat ment with Eltrombopag due to the potential for falselyelevated results. BILIRUBIN DIRECT 0.2 mg/dL 0.0-0.3 N (test code = BILD) BILIRUBIN INDIRECT 0.4 mg/dL 0.0-0.8 N (test code = BILIND) SGOT/AST (test 58 U/L 15-37 H code = AST) SGPT/ALT (test 62 U/L 6-50 H code = ALT) ALKALINE 108 U/L 45-117 N PHOSPHATASE (test code = ALKP) NEED TO CONFORM INFORMED [facility] [id number] 07:40:00 Test Item Value Reference Range Interpretation Comments PHOSPHOROUS (test code = PHOS) 8.7 mg/dL 2.5-4.9 H NEED TO CONFORM INFORMED [facility] [id number] 07:40:00 Test Item Value Reference Range Interpretation Comments MAGNESIUM (test code = MAG) 1.9 mg/dL 1.8-2.4 N NEED TO CONFORM INFORMED [facility] [id number] 21:51:00 Test Item Value Reference Range Interpretation Comments GLUBED (test 143 mg/dL 65-99 H Intravenous adm inistration code = GLUBED) of N-acetylcy steine which resultsin blood concentrations >5 mg/dL will cause overestim ationof blood glucose results . Do not use during intraven ousinfusion of N'acetylcyst eine. AG HEPATITIS B [id number] 18:52:00 Test Item Value Reference Range Interpretation Comments AG HEPATITIS B SURFACE (test Non-Reactive NONREACTIVE code = HBSAG) [id number] 18:38:00 Test Item Value Reference Range Interpretation Comments POTASSIUM (test code = K) 3.3 mmol/L 3.5-5.1 L LIPID PROFILE (CORONARY RISK)2020-11-10 18:38:00 Test Item Value Reference Range Interpretation Comments TRIGLYCERIDES (test code = TRIG) 134 mg/dL 0-149 N CHOLESTEROL (test code = CHOL) 93 mg/dL 0-200 N CHOLESTEROL/HDL RATIO (test code = 7 1-6 H CHOLHDL) HDL CHOLESTEROL (test code = HDL) 13 mg/dL 40-60 L LIPOPROTEIN LDL (test code = LDLC) 36 mg/dL 0-100 N HGBA1C - GLYCOSYLATED [id number] 18:27:00 Test Item Value Reference Range Interpretation Comments GLYCOSYLATED HEMOGLOBIN (HA1C) (test 5.4 4.5-5.9 N code = GLYHGB) CBC W/MANUAL [id number] 18:24:00 Test Item Value Reference Range Interpretation Comments WHITE BLOOD CELL 34.2 10 3/uL 4.5-11.0 HH Critical Va lue (test code = WBC) reported t oFirst Name:ALBER Last Name: RNRESULTS READ BACK AND VERIFIEDby NCLAB.GD, on 11/10/20, @ 174 3. RED BLOOD CELL (test 4.13 10 6/uL 4.30-5.90 L code = RBC) HEMOGLOBIN (test code 12.2 g/dL 14.0-18.0 L = HGB) HEMATOCRIT (test code 36.1 % 40.0-55.0 L = HCT) MEAN CELL VOLUME 87 fL 81-102 (test code = MCV) MEAN CELL HGB (test 29.5 pg 26.0-34.0 N code = MCH) MEAN CELL HGB 33.8 g/dL 31.0-37.0 N CONCENTRATION (test code = MCHC) RED CELL DISTRIBUTION 14.0 % 11.6-14.4 N WIDTH (test code = RDW) PLATELET COUNT (test 421 10 3/uL 150-400 H code = PLT) MEAN PLATELET VOLUME 8.9 fL 9.0-12.6 L (test code = MPV) NEUTROPHIL # (test 30.69 10 3/uL 1.5-7.0 H code = NT#) IMMATURE GRANULOCYTE 1.320 x10 3/uL 0.000-0.100 H # (test code = IG#) LYMPHOCYTE # (test 0.55 10 3/uL 1.50-4.00 L code = LY#) MONOCYTE # (test code 1.41 10 3/uL 0.20-0.80 H = MO#) EOSINOPHIL # (test 0.19 10 3/uL 0.0-0.5 N code = EO#) BASOPHIL # (test code 0.01 10 3/uL 0.0-0.1 N = BA#) TOTAL CELLS COUNTED 100 #CELLS (test code = TCC) SEGMENTED NEUTROPHILS 84 % 33-76 H (test code = SEG) LYMPHOCYTE (test code 1 % 14-54 L = LYMPH) PLATELET ESTIMATE INCREASED ADEQUATE (test code = PLTEST) PLATELET MORPHOLOGY NORMAL PLT MORPH NORMAL (test code = PLTMORPH) BAND NEUTROPHIL (test 7 % 0-1 H code = BAND) MONOCYTE (test code = 6 % 0-12 N MON) EOSINOPHIL (test code 0 % 0-7 N = EOS) BASOPHIL (test code = 0 % 0.0-2.0 N BASO) METAMYELOCYTE (test 2 % 0-0 H code = META) ANISOCYTOSIS (test 1+ NONE SEEN A code = ANISO) TOXIC GRANULATION MODERATE NONE SEEN (test code = TOX) RBC MORPHOLOGY Abnormal NORMAL COMMENT (test code = MOC) RN WILL SEND LABS WHEN PT IS DONE WITH [id number] 18:11:00 Test Item Value Reference Range Interpretation Comments GLUBED (test 116 mg/dL 65-99 H Intravenous adm inistration code = GLUBED) of N-acetylcy steine which resultsin blood concentrations >5 mg/dL will cause overestim ationof blood glucose results . Do not use during intraven ousinfusion of N'acetylcyst eine. [id number] 17:57:00 Test Item Value Reference Range Interpretation Comments GLUBED (test 221 mg/dL 65-99 H Intravenous adm inistration code = GLUBED) of N-acetylcy steine which resultsin blood concentrations >5 mg/dL will cause overestim ationof blood glucose results . Do not use during intraven ousinfusion of N'acetylcyst eine. CREATINE KINASE (CK)2020-11-10 17:11:00 Test Item Value Reference Range Interpretation Comments CREATINE KINASE (CK) (test code = CK) 149 U/L 26-308 N [id number] 17:11:00 Test Item Value Reference Range Interpretation Comments CKMB (test code = CKMBT) 6.3 ng/mL 0.5-3.6 H UR SODIUM [id number] 15:39:00 Test Item Value Reference Range Interpretation Comments UR SODIUM RANDOM 23 mmol/L NO REFERENC E VALUES (test code = ASTRID) AVAILABLE FOR RANDOM URINE SODIUM UR CREATININE [id number] 15:39:00 Test Item Value Reference Range Interpretation Comments UR CREATININE RANDOM 120 mg/dL 20-370 N NO REFE RENCE RANGE (test code = CREATU) AVAILAB LE FOR RANDOM CREATININE - XR FOOT 3 + V [id number] 15:34:00 [facility] : 1975 Sex: MPatient Name: VALDO LIVINGSTON Unit No: [id number] EXAMS: CPT CODE: [id number] XR FOOT 3 + [place] [id number] EXAMINATION(S): 1. 3 views left ankle 2. 3 views left foot 3. 3 views right foot INDICATION: left foot necrotizing fascitis COMPARISON: None LOCATION: W1 FINDINGS: Left ankle: Soft tissue swelling and gas is seen extending from level of visualized mid calf into the visualized foot. Diffuse vascular calcifications. No fracture or dislocation identified. Grossly preserved ankle mortise. Left foot: Diffuse soft tissue swelling and gas. Diffuse vascular calcifications. No fracture or dislocation identified. No obvious bony destruction. Hammertoe deformities. Grossly preserved joint spaces. Right foot: Soft tissue swelling. No fracture or dislocation identified. Erosive/destructive changes ofthe 4th and 5th metatarsal heads. Hammertoe deformities. Diffuse vascular calcifications. IMPRESSION: 1. Extensive soft tissue swelling and gas extending from level of visualized mid calf throughout the left foot. 2. Erosive/destructive changes of right 4th and 5th metatarsal heads. 3. Other findingsas above. at 1534 Reported and signed by:Alfred Morales MD Name: [facility]: [place] [address] : 1975 Age: 45 Sex: [place] [phone] Loc: NC.ERICU Exam Date: 11/10/2020 Status: ADM IN PH: FAX: PAGE 1 Signed Report (CONTINUED) Patient Name: VALDO LIVINGSTON Unit No: [id number] EXAMS: CPT CODE: [id number] XR FOOT 3 + [place] [id number] <Continued> CC: Self Referred; Wilmar Child MD; Roshan Manzano MD Technologist: Jos Hatfield Time: DAP (Gy m 2): Air Kerma (mGy): Trscr Dt/Tm: 11/10/2020 (1533) by:[email or web address] Electronic Signature Date/Time: 11/10/2020 (1533)Orig Print D/T: S: 11/10/2020 (1536) Name: VAL[facility] [place]: [place] [address] : 1975 Age: 45 Sex: [place] [address] Loc: PA.ERICU Exam Date: 11/10/2020 Status: ADM IN PH: FAX: PAGE 2 Signed Report- XR ANKLE 3 + V [id number] 15:34:00 [facility] : 1975 Sex: MPatient Name: VALDO LIVINGSTON Unit No: [id number] EXAMS: CPT CODE: [id number] XR ANKLE 3 + VLT [id number] EXAMINATION(S): 1. 3 views left ankle 2. 3 views left foot 3. 3 views right foot INDICATION: left foot necrotizing fascitis COMPARISON: None LOCATION: W1 FINDINGS: Left ankle: Soft tissue swelling and gas is seen extending from level of visualized mid calf into the visualized foot. Diffuse v ascular calcifications. No fracture or dislocation identified. Grossly preserved ankle mortise. Leftfoot: Diffuse soft tissue swelling and gas. Diffuse vascular calcifications. No fracture or dislocation identified. No obvious bony destruction. Hammertoe deformities. Grossly preserved joint spaces. Right foot: Soft tissue swelling. No fracture or dislocation identified. Erosive/destructive changes of the 4th and 5th metatarsal heads. Hammertoe deformities. Diffuse vascular calcifications. IMPRESSION: 1. Extensive soft tissue swelling and gas extending from level of visualized mid calf throughout the left foot. 2. Erosive/destructive changes of right 4th and 5th metatarsal heads. 3. Other findings as above. at 1534 Reported and signed by: Alfred Morales MD Name: VALDO LIVINGSTON [facility] Phys: Roshan Monge MD[address] [facility] : 1975 Age: 45 Sex: [place] [address] Loc: PA.[facility] Exam Date: 11/10/2020 Status: ADM IN PH: FAX: PAGE 1 Signed Report (CONTINUED) Patient Name: VALDO LIVINGSTON Unit No: [id number] EXAMS: CPT CODE: [id number] XR ANKLE 3 + V LT [id number] <Continued> CC: Self Referred; Wilmar Child MD; Roshan Manzano MD Technologist: Jos Hatfield Time: DAP (Gy m2): Air Kerma (mGy): Trscr Dt/Tm: 11/10/2020 (153) by:[email or web address] Electronic Signature Date/Time: 11/10/2020 (153)Orig Print D/T: S: 11/10/2020 (1537) Name: VALDO LIVINGSTON [facility] [place]: [place] [address] [facility] : 1975 Age: 45 Sex: [place] [phone] Loc: PA.ERICU Exam Date: 11/10/2020 Status: ADM IN PH: FAX: PAGE 2 Signed Report- XR FOOT 3 + V [id number] 15:34:00 [facility] : 1975 Sex: MPatient Name: VALDO LIVINGSTON Unit No: [id number] EXAMS: CPT CODE: [id number] XR FOOT 3 + V RT [id number] EXAMINATION(S): 1. 3 views left ankle 2. 3 views left foot 3. 3 views right foot INDICATION:left foot necrotizing fascitis COMPARISON: None LOCATION: W1 FINDINGS: Left ankle: Soft tissue swelling and gas is seen extending from level of visualized mid calf into the visualized foot. Diffuse vascular calcifications. No fracture or dislocation identified. Grossly preserved ankle mortise. Left foot: Diffuse soft tissue swelling and gas. Diffuse vascular calcifications. No fracture or dislocation identified. No obvious bony destruction. Hammertoe deformities. Grossly preserved joint spaces. Right foot: Soft tissue swelling. No fracture or dislocation identified. Erosive/destructive changes of the 4th and 5th metatarsal heads. Hammertoe deformities. Diffuse vascular calcifications. IMPRESSION: 1. Extensive soft tissue swelling and gas extending from level of visualized mid calf throughout the left foot. 2. Erosive/destructive changes of right 4th and 5th metatarsal heads. 3. Other findings as above. at 1534 Reported and signed by: Alfred Morales MD Name: VALDO LIVINGSTON [facility] Phys: [email or web address] - [place] [address] : 1975 Age: 45 Sex: [place] [address] Loc: PA.ERICU Exam Date: 11/10/2020 Status: ADM IN PH: FAX: PAGE 1 Signed Report (CONTINUED) Patient Name: VALDO LIVINGSTON Unit No: [id number] EXAMS: CPT CODE: [id number] XR FOOT 3 + V RT [id number] <Continued> CC:Joshua Frazier MD Technologist: Jos Hatfield Time: DAP (Gy m2): Air Kerma (mGy): Trscr Dt/Tm: 11/10/2020 (1534) by:[email or web address] Electronic Signature Date/Time: 11/10/2020 (153)Orig Print D/T: S: 11/10/2020 (1537) Name: VALDO LIVINGSTON [facility] Phys: [place] [address] : 1975 Age: 45 Sex: [place] [address] Loc: NC.ERICU Exam Date: 11/10/2020 Status: ADM IN PH: FAX: PAGE 2 Signed Report- XR CHEST 1 V 2020-11-10 15:32:00 [facility] : 1975 Sex: MPatient Name: VALDO LIVINGSTON Unit No: [id number] EXAMS: CPT CODE: [id number] XR CHEST 1 V [id number] EXAM: Chest one view. Location: A1 HISTORY: CODE SEPSIS COMPARISON: None available. FINDINGS: The lungs are free of focal airspace consolidations.. There are no pleural effusions or pneumothorax.The aorta is elongated. The pulmonary vasculature and mediastinum are within normal limits. Cardiac s ilhouette is normal in size and contour. Visualized skeletal structures are unremarkable. IMPRESSION: No active disease in the chest. at 1532 Reported and signed by: Mustapha Harris MD CC: Joshua Frazier MD Technologist: Jos Hatfield Time: DAP (Gym2): Air Kerma (mGy): Trscr Dt/Tm: 11/10/2020 (1532) by:[email or web address] Electronic Signature Date/Time: 11/10/2020 (1532)Orig Print D/T: S: 11/10/2020 (1535) Name: VALDO LIVINGSTON [facility] Phys: KARIE - [place] [address] : 1975 Age: 45 [place]: [place] [address] Loc: NC.ERICU Exam Date: 11/10/2020 Status: ADM IN PH: FAX: PAGE 1 Signed ReportUR CHLORIDE [id number] 15:08:00 Test Item Value Reference Range Interpretation Comments UR CHLORIDE RANDOM 12 mmol/L NO REFERE NCE RANGE (test code = CLU) AVAILABLE FOR RANDOM URINE CHLORIDE URINALYSIS [id number] 15:02:00 Test Item Value Reference Range Interpretation Comments UA COLOR (test code = COLU) YELLOW YELLOW UA APPEARANCE (test code = Slightly-Cloudy CLEAR APPU) UA GLUCOSE DIPSTICK (test 1+ NEGATIVE A code = DGLUU) UA BILIRUBIN DIPSTICK (test NEGATIVE NEGATIVE code = BILU) UA KETONE DIPSTICK (test code NEGATIVE NEGATIVE = KETU) UA SPECIFIC GRAVITY (test 1.013 1.005-1.025 N code = SGU) UA BLOOD DIPSTICK (test code 1+ NEGATIVE A = REJI) UA PH DIPSTICK (test code = 5.0 5.0-8.0 HANG) UA PROTEIN DIPSTICK (test 2+ NEGATIVE A code = PROU) UA UROBILINOGEN DIPSTICK NEGATIVE EU/dL 0.1-0.2 (test code = URO) UA NITRITE DIPSTICK (test NEGATIVE NEGATIVE code = ALISON) UA LEUKOCYTE ESTERASE NEGATIVE NEGATIVE DIPSTICK (test code = LEUU) UA MICROSCOPIC NEEDED? (test YES NO A code = UAMICRO) UA WBC (test code = WBCU) 0-2 /hpf 0-3 UA RBC (test code = RBCU) 0-2 /hpf 0-3 UA BACTERIA (test code = RARE /HPF NEGATIVE BACU) UA SQUAMOUS CELLS (test code RARE /HPF FEW = SQU) UA MUCUS (test code = MUCU) OCCASIONAL /lpf UA AMORPHOUS SEDIMENT (test FEW /hpf code = AMORU) [id number] 14:18:00 Test Item Value Reference Range Interpretation Comments GLUBED (test 154 mg/dL 65-99 H Intravenous adm inistration code = GLUBED) of N-acetylcy steine which resultsin blood concentrations >5 mg/dL will cause overestim ationof blood glucose results . Do not use during intraven ousinfusion of N'acetylcyst eine. SED [id number] 14:17:00 Test Item Value Reference Range Interpretation Comments SED RATE (test code = SEDW) > 140 mm/hr 0-20 H ACETONE [id number] 13:50:00 Test Item Value Reference Range Interpretation Comments ACETONE QUAL (test code = ACETNQL) NEGATIVE NEGATIVE C REACTIVE [id number] 13:10:00 Test Item Value Reference Range Interpretation Comments C REACTIVE PROTEIN (test code = 35.50 mg/dL 0.00-0.33 H CRP) [id number] 13:06:00 Test Item Value Reference Range Interpretation Comments TROPONIN-I (test code = TROPI) < 0.02 ng/mL 0.00-0.07 N BASIC METABOLIC [id number] 13:06:00 Test Item Value Reference Range Interpretation Comments SODIUM (test code = 132 mmol/L 135-145 L NA) POTASSIUM (test code 6.3 mmol/L 3.5-5.1 HH Critica l Value = K) reported toFirs t Name:BRANDEN La st Name:BRENT [facility] READ BACK AND VERIFIEDby 2DLU 4746, on 11/10/20, @ 1303. CHLORIDE (test code = 106 mmol/L 98-107 N CL) CARBON DIOXIDE (test 8 mmol/L 21-32 L code = CO2) ANION GAP (test code 24.3 2.0-16.0 H = GAP) GLUCOSE (test code = 166 mg/dL 65-99 H GLU) BLOOD UREA NITROGEN 162 mg/dL 4-23 HH Critical Value (test code = BUN) reported t oFirst Name:BRANDEN Lezama Name:BRENT NICE READ BACK AND VERIFIEDby 2DLU 7549, on 11/10/20, @ 1303. GLOMERULAR FILTRATION 4 ml/min L The es timated RATE (test code = glomerular filtration GFR) rate is compute d usingpatient ra ce, age (>18), sex, and serum creatinine. If anyof the needed data elements are mi ssing the Laboratory cannot compute an jorge mation of the glomerul ar filtration rate . CREATININE (test code 14.0 mg/dL 0.6-1.5 H = CREAT) BUN/CREATININE RATIO 11.6 12.0-20.0 L (test code = BUN/CREA) CALCIUM (test code = 7.8 mg/dL 8.5-10.1 L CA) LIVER FUNCTION [id number] 13:06:00 Test Item Value Reference Range Interpretation Comments TOTAL PROTEIN 7.2 g/dL 6.4-8.2 N (test code = PROT) ALBUMIN (test code 2.3 g/dL 3.4-5.0 L = ALB) GLOBULIN (test 4.9 g/dL 2.3-3.5 H code = GLOB) BILIRUBIN TOTAL 0.8 mg/dL 0.2-1.2 N Use of this assay is not (test code = BILT) recommend ed for patients undergoingtreat ment with Eltrombopag due to the potential for falselyelevated results. BILIRUBIN DIRECT 0.3 mg/dL 0.0-0.3 N (test code = BILD) BILIRUBIN INDIRECT 0.5 mg/dL 0.0-0.8 N (test code = BILIND) SGOT/AST (test 76 U/L 15-37 H code = AST) SGPT/ALT (test 90 U/L 6-50 H code = ALT) ALKALINE 131 U/L 45-117 H PHOSPHATASE (test code = ALKP) LACTIC [id number] 12:59:00 Test Item Value Reference Range Interpretation Comments LACTIC ACID (test code = LACT) 1.3 mmol/L 0.4-2.0 N PROTHROMBIN [id number] 12:33:00 Test Item Value Reference Range Interpretation Comments PROTHROMBIN TIME 20.7 SECONDS 9.4-12.5 H PATIENT (test code = PTP) INTERNATIONAL 1.8 RATIO 0.8-1.1 H THE INR IS USE FUL ONLY NORMAL RATIO (test FOR MONIT ORING code = INR) ANTICOAGULANT THERAPY.IT MAY BE UNRELIABLE IN T HE INITIAL PHASE O F ANTICOAGULATION AND IN UNSTABLE PATIEN TS. 2.0-3.0 is the recommended INR for the following:Preve ntion of venous thrombol ism in high-risk patients;treatm ent of venous thrombos is and pulmonary embol ism aftera course o f heparin; preven tion of systemic emboli sm in avariety of con dition, including atria l fibrillation andprosthetic t issue heart valves.2. 5-3.5 is the recommended INR for the following:Prost hetic mechanical hear t values and/or recurren t systemicemboliz ation. COVID 19 INHOUSE [id number] 12:33:00 Test Item Value Reference Range Interpretation Comments COVID 19 INHOUSE NEGATIVE Negative Negative re sults do not AG (test code = preclude 201 9-nCoV infection [id number]) andshould not b e used as the sole basis for treatment or otherpatient ma nagement decisions. Nega tive results must becombined with clinical observ ations, patient history , andepidemiologi gilberto information.
--- NOTE | 2021-10-07 12:57 | RAD REPORT ---
EXAM DESCRIPTION: RAD - Foot Right 2 View - 10/07/2021 12:37 pm CLINICAL HISTORY: r/o osteo Pain and swelling COMPARISON: No comparisons FINDINGS: Previous first toe amputation is present. Soft tissue ulceration with bony destructive oneal nges involving the distal phalanx of the second toe noted compatible with osteomyelitis. Prominent va scular atherosclerosis. IMPRESSION: Osteomyelitis distal phalanx second toe.
[2021-10-07 13:41] LABS: Absolute Lymphocytes (CBC) 1.3 K/uL (0.7-4.9); Hematocrit 33.3 % (39.6-49.0); Lymphocytes % 14.9 % (15.3-44.8); MCV 95.1 fL (80-100); MPV 7.9 fL (7.6-11.3)
[2021-10-07 13:56] LABS: Albumin 3.4 g/dL (3.4-5.0); Bilirubin Total 0.6 mg/dL (0.2-1.0); Protein, Total 8.3 g/dL (6.4-8.2)
[2021-10-07 13:59] LABS: Potassium 2.8 mmol/L (3.5-5.1)
--- NOTE | 2021-10-07 14:17 | EDPHYS ---
Physician Documentation [facility] Name: Felipe Hayes Age: 46 yrs Sex: Male : 1975 Arrival Date: 10/07/2021 Time: 11:35 Bed 24 Private MD: ED Physician Adam Deluca HPI: 10/07 11:50 This 46 yrs old Male presents to ER via Ambulatory with complaints of Toe jh7 Infection. 11:50 Onset: The symptoms/episode began/occurred acutely. Associated signs and symptoms: jh7 Pertinent negatives: fever. Patient presents with right second toe bleeding and redness starting this morning. Patient states that he noticed that his toe was bleeding and appeared infected. He is concerned because he is diabetic and had his right great toe amputated a few years ago. Denies fever, pain, or any other symptoms at this time. . Historical: - Allergies: 11:44 No Known Allergies; ap3 - PMHx: 11:44 End stage renal disease; Dialysis-MWF; Diabetes mellitus; Hypertensive disorder; ap3 - PSHx: 11:44 Right upper arm fistula; ap3 - Immunization history:: Client reports receiving the 2nd dose of the Covid vaccine. - Social history:: Smoking status: Patient denies any tobacco usage or history of. Patient uses street drugs, marijuana. ROS: 11:50 Constitutional: Negative for fever, chills, and weight loss, ENT: Negative for injury, jh7 pain, and discharge, Neck: Negative for injury, pain, and swelling, Cardiovascular: Negative for chest pain, palpitations, and edema, Respiratory: Negative for shortness of breath, cough, wheezing, and pleuritic chest pain, Abdomen/GI: Negative for abdominal pain, nausea, vomiting, diarrhea, and constipation, Back: Negative for injury and pain, Neuro: Negative for headache, weakness, numbness, tingling, and seizure. 11:50 MS/extremity: Positive for erythema, Diabetic foot ulcer, Negative for injury or acute deformity, decreased range of motion. 11:50 Skin: Positive for ulceration. 11:50 All other systems are negative. Exam: 11:50 Constitutional: This is a well developed, well nourished patient who is awake, alert, jh7 and in no acute distress. Head/Face: Normocephalic, atraumatic. Cardiovascular: Regular rate and rhythm with a normal S1 and S2. No gallops, murmurs, or rubs. Normal PMI, no JVD. No pulse deficits. Respiratory: Lungs have equal breath sounds bilaterally, clear to auscultation and percussion. No rales, rhonchi or wheezes noted. No increased work of breathing, no retractions or nasal flaring. Abdomen/GI: Soft, non-tender, with normal bowel sounds. No distension or tympany. No guarding or rebound. No evidence of tenderness throughout. Back: No spinal tenderness. No costovertebral tenderness. Full range of motion. MS/ Extremity: Pulses equal, no cyanosis. Neurovascular intact. Full, normal range of motion. Neuro: Awake and alert, GCS 15, oriented to person, place, time, and situation. Motor strength 5/5 in all extremities. Sensory grossly intact. Normal gait. 11:50 Skin: Bleeding ulcer with mild erythema present on the plantar surface of the right second digit. Dried purulent drainage and blood present. Denies tenderness to palpation.. Vital Signs: 11:42 BP 126 / 89; Pulse 99; Resp 18; Temp 98.2; Pulse Ox 100% ; Weight 60.33 kg; Height 5 ap3 ft. 5 in. (165.10 cm); 12:10 BP 146 / 74; Pulse 100; Resp 18; Pulse Ox 100% ; Pain 0/10; kb3 13:29 BP 144 / 89; Pulse 84; Resp 16; Pulse Ox 100% ; bp 11:42 Body Mass Index 22.13 (60.33 kg, 165.10 cm) ap3 MDM: 11:52 Patient medically screened. [facility] 14:20 Data reviewed: vital signs, nurses notes, lab test result(s), radiologic studies, plain [facility] films. Data interpreted: Pulse oximetry: is 100 %. Interpretation: normal. Counseling: I had a detailed discussion with the patient and/or guardian regarding: the historical points, exam findings, and any diagnostic results supporting the discharge/admit diagnosis, the need for further work-up and treatment in the hospital. Physician consultation: Shine Bhardwaj MD was called at 14:15, was contacted at 14:15, regarding consult, would like admission per Dr. Arvind Reilly MD. ED course: Spoke to Dr. Reilly regarding patient admission. Informed him that the patient was actually dialyzed today, and is a Monday, , Monday dialysis patient. He advised giving a small amount of potassium to correct the patient's hypokalemia and for the patient to be admitted under inpatient status. Dr. Bhardwaj requested that the patient become n.p.o. at midnight. Pharmacy suggested giving the patient 1 gram of vancomycin as a loading dose and will make renal adjustments for the next dose.. 10/07 13:11 Order name: CBC with Diff; Complete Time: 13:59 [facility] 10/07 13:11 Order name: CMP; Complete Time: 14:00 [facility] 10/07 13:11 Order name: Lactate; Complete Time: 13:59 [facility] 10/07 13:16 Order name: Wound Culture [facility] 10/07 14:39 Order name: Magnesium; Complete Time: 18:28 [facility] 10/07 14:53 Order name: SARS RAPID; Complete Time: 18:28 [facility] 10/07 16:27 Order name: Basic Metabolic Panel [facility] 10/07 16:27 Order name: Basic Metabolic Panel; Complete Time: 04:20 [facility] 10/07 16:27 Order name: CBC with Automated Diff [facility] 10/07 16:27 Order name: CBC with Automated Diff; Complete Time: 04:18 EDMS 10/07 16:27 Order name: Lipid Profile ED[facility] 10/07 16:27 Order name: Lipid Profile; Complete Time: 04:20 EDMS 10/07 16:27 Order name: Magnesium EDMS 10/07 16:27 Order name: Magnesium; Complete Time: 04:20 EDMS 10/07 12:39 Order name: Foot Right 2 View; Complete Time: 13:07 EDMS 10/07 16:23 Order name: CONS Physician Consult EDMS 10/07 16:27 Order name: NPO EDMS 10/07 16:27 Order name: Renal EDMS 10/07 16:27 Order name: Phosphorus EDMS 10/07 16:27 Order name: Phosphorus; Complete Time: 04:20 EDMS 10/07 17:22 Order name: US; Complete Time: 18:28 EDMS 10/08 01:12 Order name: Glucose, Ancillary Testing; Complete Time: 04:18 EDMS 10/08 03:50 Order name: Protime (+INR); Complete Time: 04:18 EDMS 10/08 07:30 Order name: Glucose, Ancillary Testing [facility] 10/08 11:17 Order name: Glucose, Ancillary Testing EDNY Administered Medications: 14:35 Not Given (Physician Discretion): Potassium Effervescent Tablet 50 mEq PO once; 7 dissolve in 4 ounces of water or juice 14:36 Drug: vancoMYCIN 1 grams Route: IVPB; Infused Over: 2 hrs; Site: left forearm; kb3 16:45 Follow up: IV Status: Completed infusion; IV Intake: 100ml kb3 14:55 Drug: Potassium Chloride 20 mEq Route: PO; kb3 15:49 Follow up: Response: No adverse reaction kb3 Disposition Summary: 10/07/21 14:16 Hospitalization Ordered Hospitalization Status: Inpatient Admission [facility] Provider: Arvind Reilly Condition: Stable [facility] Problem: new jh Symptoms: are unchanged [facility] Bed/Room Type: Standard [facility] Location: Telemetry/MedSurg (Inpatient)(10/08/21 12:25) ja1 Room Assignment: [facility](10/08/21 12:25) [facility] Diagnosis - Osteomyelitis, unspecified [facility] Forms: - Medication Reconciliation Form [facility] - SBAR form [facility] Signatures: Dispatcher [employer] EDNY Pritesh Reilly MD MD rn Attema, Lee, PIPE FITTER SUPERVISOR MAINTENANCE-C PIPE FITTER SUPERVISOR MAINTENANCE-Savi Bernal, RN RN Chaim De La Cruz RN RN ja1 Aury Delatorre RN RN ap3 Elizabeth Bennett FNP PIPE FITTER SUPERVISOR MAINTENANCE 7 Deysi Sterling RN RN kb3 Corrections: (The following items were deleted from the chart) 12:39 12:08 Foot Left 2 View+RAD.RAD.BRZ ordered. EDNY EDMS 14:42 11:50 This 46 yrs old Male presents to ER via Ambulatory with complaints of jh7 Toe Infection. jh7 22:09 14:16 Telemetry/MedSurg (Inpatient) jh7 cg 22: 14:16 jh7 cg 10/08 12:25 0818 22:09 [facility] ER HOLD ja 10/08 12:25 10/07 22:09 ERHOLD- cg ja
--- NOTE | 2021-10-07 14:17 | ER ---
Nurse's Notes [facility] Name: Felipe Hayes Age: 46 yrs Sex: Male : 1975 Arrival Date: 10/07/2021 Time: 11:35 Bed 24 Private MD: Diagnosis: Osteomyelitis, unspecified Presentation: 10/07 11:42 Chief complaint: Patient states: when he took his sock off this morning there was a ap3 little blood in it. patient states he changes his socks every 2 days when he inspects his feet, and is worried he might be developing a new toe infection on his left 2nd toe. patient has needed amputation for previous infections. Coronavirus screen: At this time, the client does not indicate any symptoms associated with coronavirus-19. Ebola Screen: No symptoms or risks identified at this time. Initial Sepsis Screen: Does the patient meet any 2 criteria? No. Patient's initial sepsis screen is negative. Does the patient have a suspected source of infection? No. Patient's initial sepsis screen is negative. Risk Assessment: Do you want to hurt yourself or someone else? Patient reports no desire to harm self or others. Onset of symptoms was October 07, 2021. 11:42 Method Of Arrival: Ambulatory ap3 11:42 Acuity: SANTOSH 3 ap3 Triage Assessment: 11:45 General: Appears in no apparent distress. Behavior is calm, cooperative. Pain: Denies ap3 pain. EENT:. Neuro: Level of Consciousness is awake, alert, obeys commands, Oriented to person, place, time. Cardiovascular: Patient's skin is warm and dry. Respiratory: Airway is patent Respiratory effort is even, unlabored, Respiratory pattern is regular, symmetrical. Derm: Reports wound to the 2nd toe of his left foot. Musculoskeletal: Amputation of right leg. Historical: - Allergies: 11:44 No Known Allergies; ap3 - PMHx: 11:44 End stage renal disease; Dialysis-MWF; Diabetes mellitus; Hypertensive disorder; ap3 - PSHx: 11:44 Right upper arm fistula; ap3 - Immunization history:: Client reports receiving the 2nd dose of the Covid vaccine. - Social history:: Smoking status: Patient denies any tobacco usage or history of. Patient uses street drugs, marijuana. Screenin:46 Abuse screen: Denies threats or abuse. Nutritional screening: No deficits noted. ap3 Tuberculosis screening: No symptoms or risk factors identified. 12:10 Fall Risk No fall in past 12 months (0 pts). Secondary diagnosis (15 points) impaired kb3 mobility, No IV (0 pts). Ambulatory Aid- Crutches/Cane/Walker (15 pts). Gait- Normal/Bed Rest/Wheelchair (0 pts) Mental Status- Oriented to own ability (0 pts). Total [place] Fall Scale indicates Low Risk Score (25-44 pts). Fall prevention measures have been instituted. Frequent Obs/Assesments occuring As available Patient and Family Educated on Fall Prevention Program and strategies. Assessment: 12:10 Reassessment: No changes from previously documented assessment. General: Appears in no kb3 apparent distress. comfortable, Behavior is calm, cooperative. Pain: Denies pain. Derm: Wound noted plantar aspect of right second toe, right second toe and Right second toenail Wound is 1 cm circular wound noted to lateral distal toe. Toenail is overgrown and appears fungal. Wound bed is dry with scant amount of dried blood noted. Toe is dusky in color. 14:46 General: Spoke with outside lab to add on Mag to previous blood draw. kb3 Vital Signs: 11:42 BP 126 / 89; Pulse 99; Resp 18; Temp 98.2; Pulse Ox 100% ; Weight 60.33 kg; Height 5 ap3 ft. 5 in. (165.10 cm); 12:10 BP 146 / 74; Pulse 100; Resp 18; Pulse Ox 100% ; Pain 0/10; kb3 13:29 BP 144 / 89; Pulse 84; Resp 16; Pulse Ox 100% ; bp 11:42 Body Mass Index 22.13 (60.33 kg, 165.10 cm) ap3 ED Course: 11:35 Patient arrived in ED. rg4 11:44 Triage completed. ap3 11:46 Arm band placed on left wrist. ap3 11:48 Elizabeth Bennett FNP is PSYCHIATRICP. jh7 11:48 Adam Deluca MD is Attending Physician. jh7 11:51 Deysi Sterling, RN is Primary Nurse. kb3 12:10 No apparent distress. Provider at bedside. kb3 12:10 Patient has correct armband on for positive identification. Bed in low position. Call kb3 light in reach. Side rails up X 1. 12:10 No provider procedures requiring assistance completed. kb3 12:39 Foot Right 2 View In Process Unspecified. EDMS 13:20 Inserted saline lock: 20 gauge in left forearm, using aseptic technique. Blood bp collected. 13:28 Wound Culture Sent. bp 14:16 Arvind Reilly MD is Hospitalizing Provider. jh7 20:01 Helder Ratliff, RN is Primary Nurse. as6 23:45 Patient admitted, IV remains in place. as6 Administered Medications: 14:35 Not Given (Physician Discretion): Potassium Effervescent Tablet 50 mEq PO once; jh7 dissolve in 4 ounces of water or juice 14:36 Drug: vancoMYCIN 1 grams Route: IVPB; Infused Over: 2 hrs; Site: left forearm; kb3 16:45 Follow up: IV Status: Completed infusion; IV Intake: 100ml kb3 14:55 Drug: Potassium Chloride 20 mEq Route: PO; kb3 15:49 Follow up: Response: No adverse reaction kb3 Medication: 12:10 VIS not applicable for this client. kb3 Intake: 16:45 IV: 100ml; Total: 100ml. kb3 Outcome: 14:16 Decision to Hospitalize by Provider. jh7 23:45 Admitted to ER Hold. Please see [facility] for further documentation. as6 23:45 Condition: stable 23:45 Instructed on the need for admit. 10/08 13:00 Patient left the ED. eb Signatures: Dispatcher [employer] EDMandi Gudino rg4 Roshan Purvis, RN RN bp Aury Delatorre RN RN can3 Brissa Dixon Helder Ratliff, RN SARAH as6 Elizabeth Bennett, PRODUCT SUPPORT ENGINEER PRODUCT SUPPORT ENGINEER 7 Deysi Sterling, RN RN kb3
[2021-10-07] MEDS ORDERED: POTASSIUM 25 MEQ EFFERV TAB ONE (14:39)
[2021-10-07] MEDS ORDERED: VANCOMYCIN 1 GM/VIAL ONE (14:39)
[2021-10-07] MEDS ORDERED: NA CHLORIDE 0.9% 100 ML ONE (14:40)
[2021-10-07] MEDS ORDERED: POTASSIUM CL SA 10 MEQ TAB PO ONE (15:02)
[2021-10-07 16:02] LABS: SARS-CoV-2 Antigen Rapid Res Negative (Negative)
[2021-10-07] MEDS ORDERED: ACETAMINOPHEN 500 MG TAB PO PRN (16:23)
[2021-10-07] MEDS ORDERED: ONDANSETRON 4 MG/2 ML VIAL IV PRN (16:23)
[2021-10-07] MEDS: INSULIN -REGULAR HUMAN 50 UNIT/0.5 ML ML SQ SCH ×2 (16:30→21:00)
--- NOTE | 2021-10-07 16:36 | P.HP ---
Certification for Inpatient Patient admitted to: Inpatient With expected LOS: >2 Midnights Practitioner: I am a practitioner with admitting privileges, knowledge of patient current condition, hospital course, and medical plan of care. 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 States he does not recall seeing any issue with his toe ~2 days ago. He reports history of what sounds like severe sepsis/shock from a left foot infection that required BKA and several weeks in the hospital last year. Early this year he required 1st toe on his right foot to be amputated due to osteomyelitis. X-ray in the ED is consistent with osteomyelitsi of his 2nd toe. He denies any other symptoms - otherwise has been feeling well. No fever/chills, no nausea/vomiting, no diarrhea, no swelling, no shortness of breath. - Past Medical/Surgical History -: ESRD-HD -: prior osteomyelitis s/p amputation (R BKA, L 1st toe) -: HTN -: NIDDM2 -: R BKA -: L 1st toe amputation -: RUE AV fistula - Family History Family History: Reviewed- Non-Contributory - Social History Smoking Status: Never smoker Alcohol use: No Place of Residence: Home Review of Systems 10-point ROS is otherwise unremarkable Physical Examination - Physical Exam General: Alert, In no apparent distress, Oriented x3 HEENT: EOMI, Sclerae nonicteric Neck: Supple, No LAD Respiratory: Clear to auscultation bilaterally, Normal air movement Cardiovascular: No edema, Regular rate/rhythm Gastrointestinal: Soft and benign, Non-distended, No tenderness Musculoskeletal: No contractures, No tenderness, Other (Left BKA, prosthesis in place) Integumentary: Other (~1cm dry ulceration at tip of R 2nd toe, slight erythema on plantar aspect of toe) Neurological: Normal speech, Normal strength at 5/5 x4 extr, Normal affect - Studies Laboratory Data (last 24 hrs) 10/07/21 13:20: Magnesium 2.7 H 10/07/21 13:20: Sodium 136, Potassium 2.8 L*, BUN 16, Creatinine 4.31 H, Glucose 180 H, Total Bilirubin 0.6, AST 12 L, ALT 16, Alkaline Phosphatase 111 10/07/21 13:20: WBC 8.70, Hgb 11.3 L, Hct 33.3 L, Plt Count 307 Assessment and Plan - Advance Directives Does patient have a Living Will: No Does patient have a Durable POA for Healthcare: No Physician Review Additional Text: Problem List R 2nd toe osteomyelitis HTN ESRD - HD () NIDDM2 IV Vancomycin, renally dose patient does not appear septic, afebrile, no leukocytosis nephrology consulted Dr. Bhardwaj contacted by ER, NPO After midnight, likely would need amputation confirm home meds, restart anti-hypertensives insulin sliding scale h/o osteomyelitis previously good DP pulse on R foot, x-ray noted osteo and atherosclerosis check arterial doppler Code: full Dispo: home, ~2-3 days, pending further findings / possible amputation Time Spent Managing Pts Care (In Minutes): 70
[2021-10-07] MEDS: HEPARIN 5000 UNIT/ML 1 ML VIAL SQ SCH (17:00)
--- NOTE | 2021-10-07 17:20 | RAD REPORT ---
EXAM DESCRIPTION: US - Lower Extremity Arterial Bilat - 10/07/2021 5:12 pm CLINICAL HISTORY: R 2nd toe osteo, eval flow Leg pain COMPARISON: No comparisons TECHNIQUE: Bilateral lower extremity arterial Doppler examination was performed with waveform tracin g and velocity measurements. FINDINGS: Monophasic waveforms are seen throughout the right lower extremity arterial system. Left common femoral artery is monophasic. No occlusion is identified. IMPRESSION: Diffuse monophasic waveforms throughout the right lower extremity arterial system. This indicates moderate inflow disease.
[2021-10-07] MEDS ORDERED: VANCOMYCIN 1 GM in NA CHLORIDE 0.9% 250 ML IVPB SCH (18:00)
[2021-10-07] MEDS ORDERED: MELATONIN 5 MG TABLET PO PRN (22:13)
[2021-10-07] MEDS ORDERED: MELATONIN 5 MG TABLET PO ONE (22:55)
[2021-10-07 23:42] VITALS: BMI 22.1
[2021-10-08] MEDS: HEPARIN 5000 UNIT/ML 1 ML VIAL SQ SCH ×4 (01:00→16:34)
[2021-10-08] MEDS ORDERED: HEPARIN 5000 UNIT/ML 1 ML VIAL ONE (01:16)
[2021-10-08 03:49] LABS: Absolute Lymphocytes (CBC) 2.1 K/uL (0.7-4.9); Lymphocytes % 23.7 % (15.3-44.8); MCV 94.8 fL (80-100); RBC Red Blood Cell Count 3.27 M/uL (4.33-5.43)
[2021-10-08 03:50] LABS: Protime INR 1.29
[2021-10-08 04:13] LABS: Magnesium 2.4 mg/dL (1.8-2.4); Phosphorus 4.1 mg/dL (2.5-4.9); Potassium 3.2 mmol/L (3.5-5.1)
--- NOTE | 2021-10-08 06:41 | P.PN ---
Date of Service: 10/08/21 Subjective: no acute events overnight no new symptoms, no worsening pain, no fever/chills ROS: 10 point ROS as noted above, otherwise negative Physical Exam: Gen: NAD, AOx3 HEENT: normal conjunctiva, sclera anicteric CV: regular rate & rhythm, no edema Pulm: non-labored respirations, clear bilaterally MSK: L BKA Skin: 2nd toe - dry gangrenous changes, no purulent drainage Neuro: normal speech, normal affect, moves all extremities vitals reviewed Problem List R 2nd toe osteomyelitis HTN ESRD - HD () NIDDM2 IV Vancomycin, renally dose patient does not appear septic, afebrile, no leukocytosis nephrology consulted Dr. Bhardwaj consulted, plan for OR today confirm home meds, restart anti-hypertensives insulin sliding scale h/o osteomyelitis previously good DP pulse on R foot, x-ray noted osteo and atherosclerosis Arterial doppler: monophasic flow throughout, discussed further assessment for possible intervention; pt would like to f/u with his advanced practice rn Code: full Dispo: home, ~1-2 days, pending further findings / possible amputation Time Spent Managing Pts Care (In Minutes): 35
[2021-10-08] MEDS: INSULIN -REGULAR HUMAN 50 UNIT/0.5 ML ML SQ SCH ×4 (07:30→21:00)
--- NOTE | 2021-10-08 10:20 | P.CNS ---
Date of Consult: 10/08/21 Chief Complaint: R 2nd toe osteo Allergies No Known Allergies Allergy (Verified 10/07/21 17:14) - Past Medical/Surgical History Diabetic: Yes -: ESRD-HD -: prior osteomyelitis s/p amputation (R BKA, L 1st toe) -: HTN -: NIDDM2 -: R BKA -: L 1st toe amputation -: RUE AV fistula - Social History Alcohol use: No Place of Residence: Home Physical Examination Temp Pulse Resp BP Pulse Ox 97.5 F 73 16 127/69 100 10/08/21 08:00 10/08/21 03:41 10/08/21 08:00 10/08/21 08:00 10/08/21 08:00 Laboratory Data (last 24 hrs) 10/07/21 13:20: Magnesium 2.7 H 10/07/21 13:20: Sodium 136, Potassium 2.8 L*, BUN 16, Creatinine 4.31 H, Glucose 180 H, Total Bilirubin 0.6, AST 12 L, ALT 16, Alkaline Phosphatase 111 10/07/21 13:20: WBC 8.70, Hgb 11.3 L, Hct 33.3 L, Plt Count 307
[2021-10-08] MEDS ORDERED: NA CHLORIDE 0.9% 500 ML ONE (13:09)
[2021-10-08] MEDS ORDERED: BUPIVACAINE 0.25% PF 10 ML VIAL ONE (14:53)
[2021-10-08] MEDS ORDERED: propofoL 200 MG/20 ML VIAL IV ONE ×2 (14:53→15:56)
[2021-10-08] MEDS ORDERED: VANCOMYCIN 1.5 GM in NA CHLORIDE 0.9% 500 ML IVPB SCH (15:00)
[2021-10-08] MEDS ORDERED: Phenylephrine HCl 10 MG/ML 1 ML VIAL ONE (15:10)
[2021-10-08] MEDS ORDERED: NS 0.9% VIAL 10 ML ONE (15:11)
--- NOTE | 2021-10-08 15:18 | P.OP ---
Preoperative diagnosis: RIGHT 2nd Toe Osteomyelitis Postoperative diagnosis: RIGHT 2nd Toe Osteomyelitis Primary procedure: Amputation of 2nd phalanx Anesthesia: MAC + Local Estimated blood loss: < 5cc Specimen: distal phalanx Findings: osteomyelitis of 2nd distal phalanx Complications: None Transferred to: Recovery Room Condition: Good
[2021-10-08] MEDS ORDERED: BUPIVACAINE 0.25% PF 10 ML VIAL IJ ONE (15:26)
[2021-10-08] MEDS ORDERED: MIDAZOLAM HCL 2 MG/2 ML INJ ONE (15:56)
[2021-10-08] MEDS ORDERED: LIDOCAINE 2% MPF 5 ML VIAL ONE (15:56)
[2021-10-08] MEDS ORDERED: FENTANYL CITR 100 MCG/2 ML ONE (15:56)
[2021-10-08] MEDS ORDERED: ONDANSETRON 4 MG/2 ML VIAL ONE (15:56)
[2021-10-08 20:34] VITALS: O2SAT 99
[2021-10-08] MEDS: CODEINE 30MG/APAP 300MG TAB PO PRN (21:16)
[2021-10-09] MEDS: HEPARIN 5000 UNIT/ML 1 ML VIAL SQ SCH ×3 (00:22→16:12)
--- NOTE | 2021-10-09 02:31 | OP ---
Date of Procedure: 10/08/2021 Surgeon: Shine Bhardwaj MD, Preoperative Diagnosis: Right toe osteomyelitis. Postoperative Diagnosis: Right toe osteomyelitis. Procedure Performed: Amputation of the second distal phalanx of the right foot. Anesthesia: MAC plus local. Estimated Blood Loss: Less than 5 mL. Specimen: Distal phalanx. Findings: Osteomyelitis of the second distal phalanx. Complications: None. Disposition: The patient was transferred to recovery room in good condition. Procedure In Detail: After informed consent was obtained, the patient was brought to the operating r oom and prepped and draped in the usual sterile fashion. After adequate anesthesia was achieved, I m nevin a plantar flap circumferential dissection down to include the distal phalanx all the way down to the interphalangeal joint. When the interphalangeal joint was exposed appropriately, I ligated the d istal phalanx at this point, using electrocautery and sent off the specimen for examination. I then trimmed the posterior flap with tenotomy scissors and irrigated the area. Hemostasis was achieved wi th electrocautery. I then closed the tissue primarily using interrupted 3-0 nylon suture with good a pposition of the tissues. The patient tolerated the procedure without any evidence of any complicati on and was transferred back in good condition, after sterile dressing was placed. All counts were correct a t the end of the case. TK/MODL Voice ID: [id number] Report ID: [id number]
[2021-10-09] MEDS: CODEINE 30MG/APAP 300MG TAB PO PRN ×2 (02:38→16:17)
[2021-10-09] MEDS: INSULIN -REGULAR HUMAN 50 UNIT/0.5 ML ML SQ SCH ×3 (07:30→16:11)
[2021-10-09 07:52] LABS: Absolute Lymphocytes (CBC) 2.1 K/uL (0.7-4.9); Hematocrit 30.7 % (39.6-49.0); Lymphocytes % 29.6 % (15.3-44.8); MCV 96.3 fL (80-100); MPV 8.5 fL (7.6-11.3); RBC Red Blood Cell Count 3.19 M/uL (4.33-5.43)
[2021-10-09 08:13] LABS: Albumin 3.2 g/dL (3.4-5.0); Magnesium 2.7 mg/dL (1.8-2.4); Phosphorus 4.9 mg/dL (2.5-4.9); Potassium 3.8 mmol/L (3.5-5.1)
--- NOTE | 2021-10-09 14:10 | P.DS ---
Admission Date: 10/07/21 Discharge Date: 10/09/21 Disposition: ROUTINE DISCHARGE Discharge Condition: GOOD Reason for Admission: R 2nd toe osteo Consultations: General surgery - Dr. Bhardwaj Nephrology - Dr. 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 States he does not recall seeing any issue with his toe ~2 days ago. He reports history of what sounds like severe sepsis/shock from a left foot infection that required BKA and several weeks in the hospital last year. Early this year he required 1st toe on his right foot to be amputated due to osteomyelitis. X-ray in the ED is consistent with osteomyelitsi of his 2nd toe. He denies any other symptoms - otherwise has been feeling well. No fever/chills, no nausea/vomiting, no diarrhea, no swelling, no shortness of breath. Hospital Course: Problem List R 2nd toe osteomyelitis, now s/p amputation HTN ESRD - HD ([id number]) NIDDM2 Patient presented with a wound on his right second phalanx. This was found to have osteomyelitis. Underwent amputation of his right second distal phalanx by Dr. Bhardwaj on 10/08, without complications. Patient remained afebrile and without leukocytosis throughout his hospitalization. Nephrology was consulted and patient underwent dialysis per his typical schedule on 10/09 Patient was deemed stable for discharge home with 7 additional days of antibiotics. Patient underwent arterial Doppler of his right leg which noted monophasic flow throughout. Recommended follow-up with vascular/cardiology for further evaluation/intervention. Medications New: Levaquin and doxycycline, for 7 days, renally dosed No other changes to medications; continue prior medications as prescribed Follow-up Dr. Bhardwaj for post-op wound check Cardiology/Vascular - recommend R leg angio Physical Exam: Gen: NAD, AOx3 HEENT: normal conjunctiva, sclera anicteric CV: regular rate & rhythm, no edema Pulm: non-labored respirations, clear bilaterally MSK: L BKA Skin: L foot s/p amputation, dressing c/d/i Neuro: normal speech, normal affect, moves all extremities Vital Signs/Physical Exam: Temp Pulse Resp BP Pulse Ox 98.9 F 66 18 147/76 H 100 10/09/21 12:00 10/09/21 12:00 10/09/21 12:00 10/09/21 12:00 10/09/21 12:00 Laboratory Data at Discharge: WBC 7.20 K/uL (4.3-10.9) D 10/09/21 07:13 Hgb 10.4 g/dL (13.6-17.9) L 10/09/21 07:13 Hct 30.7 % (39.6-49.0) L 10/09/21 07:13 Plt Count 273 K/uL (152-406) 10/09/21 07:13 PT 14.3 SECONDS (9.5-12.5) H 10/08/21 03:18 INR 1.29 10/08/21 03:18 Sodium 136 mmol/L (136-145) 10/09/21 07:13 Potassium 3.8 mmol/L (3.5-5.1) 10/09/21 07:13 BUN 45 mg/dL (7-18) H 10/09/21 07:13 Creatinine 8.38 mg/dL (0.55-1.3) H* D 10/09/21 07:13 Glucose 138 mg/dL (74-106) H 10/09/21 07:13 Phosphorus 4.9 mg/dL (2.5-4.9) 10/09/21 07:13 Magnesium 2.7 mg/dL (1.8-2.4) H 10/09/21 07:13 Total Bilirubin 0.6 mg/dL (0.2-1.0) 10/07/21 13:20 AST 12 U/L (15-37) L 10/07/21 13:20 ALT 16 U/L (12-78) 10/07/21 13:20 Alkaline Phosphatase 111 U/L (45-117) 10/07/21 13:20 Triglycerides 99 mg/dL (<150) 10/08/21 03:18 Cholesterol 98 mg/dL (<200) 10/08/21 03:18 HDL Cholesterol 33 mg/dL (40-60) L 10/08/21 03:18 Cholesterol/HDL Ratio 2.97 10/08/21 03:18 Home Medications: Amlodipine Besylate 5 mg PO DAILY 10/09/21 Atorvastatin Calcium [Lipitor*] 10 mg PO DAILY 10/09/21 Doxycycline Hyclate 100 mg PO BID 7 Days #14 tab 10/09/21 Losartan Potassium 25 mg PO SEECOM 10/09/21 Rivaroxaban [Xarelto*] 2.5 mg PO BID 10/09/21 Sevelamer Carbonate [Renvela*] 800 mg PO TIDWM 10/09/21 levoFLOXacin [Levaquin] 500 mg PO Q48H 8 Days #4 tab 10/09/21 New Medications: Doxycycline Hyclate 100 mg PO BID 7 Days #14 tab levoFLOXacin [Levaquin] 500 mg PO Q48H 8 Days #4 tab Physician Discharge Instructions: Patient presented with a wound on his right second phalanx. This was found to have osteomyelitis. Underwent amputation of his right second distal phalanx by Dr. Bhardwaj on 10/08, without complications. Patient remained afebrile and without leukocytosis throughout his hospitalization. Nephrology was consulted and patient underwent dialysis per his typical schedule on 10/09 Patient was deemed stable for discharge home with 7 additional days of antibiotics. Patient underwent arterial Doppler of his right leg which noted monophasic flow throughout. Recommended follow-up with vascular/cardiology for further evaluation/intervention. Medications New: Levaquin and doxycycline, for 7 days, renally dosed No other changes to medications; continue prior medications as prescribed Follow-up Dr. Bhardwaj for post-op wound check Cardiology/Vascular - recommend R leg angio Diet: Renal Followup: Shine Bhardwaj MD [ACTIVE - CAN ADMIT] - NONE,NONE [Primary Care Provider] - Time spent managing pt's care (in minutes): 45
[2021-10-09 21:20] VITALS: BP 115/56; TEMP 98.3
== END 2021-10-09 20:15 | disposition home or self-care (01) | DRG 617 ==
LOC: ER 11:33 → ERHOLD 16:21 → 4TH 10-08 12:46 → 2ND 10-08 13:56
PROVIDERS: ADMIT Hospitalist; ATTEND Hospitalist
PROC: 0Y6R0Z3 Detachment at Right 2nd Toe, Low, Open Approach (ICD-10-PCS; principal; 2021-10-08 14:00)
PROC: 5A1D70Z Performance of Urinary Filtration, Intermittent, Less than 6 Hours Per Day (ICD-10-PCS; 2021-10-09)
DX: E11.69 Type 2 diabetes mellitus with other specified complication (principal); I12.0 Hypertensive chronic kidney disease with stage 5 chronic kidney disease or end stage renal disease; M86.9 Osteomyelitis, unspecified; N18.6 End stage renal disease; E11.22 Type 2 diabetes mellitus with diabetic chronic kidney disease; E87.6 Hypokalemia; Z99.2 Dependence on renal dialysis; Z89.511 Acquired absence of right leg below knee; Z89.421 Acquired absence of other right toe(s); Z79.899 Other long term (current) drug therapy; Z79.01 Long term (current) use of anticoagulants; Z20.822 Contact with and (suspected) exposure to COVID-19
CPT/HCPCS: 36415; 80048; 80053; 80061; 80069; 82947; 83605; 83735; 84100; 85025; 85610; 87070; 87205; 87811; 88305; 88311; 90935; 93925; 94760; 96365; 96366; 99285; J1644; J2250; J2370; J2405; J2704; J3010; J3370; J7040